=== PATIENT | female | born 1955 | race Hispanic/Latino ===

== ENCOUNTER 2024-11-16 20:49 | Observation (INO) | payer OTHER ==
[~2024-11-16] VITALS: Ht 167.6 cm; Wt 72.2 kg
[2024-11-16 21:23] LABS: IMMATURE GRANULOCYTE ABSOLUTE 0.06 K/uL (0-1); NUCLEATED RED BLOOD CELLS 0.0 % (0.0-0.19); PLATELET COUNT (AUTO) 333 K/uL (130-400); RED BLOOD CELL COUNT(AUTO) 4.46 MIL/uL (4.00-5.50); RED CELL DISTRIBUTION WIDTH 12.0 % (11.0-15.5); WHITE BLOOD COUNT (AUTO) 12.4 K/uL (4.8-10.8)
[2024-11-16 21:32] LABS: CREATININE 1.3 mg/dL (0.5-1.0); GLOMERULAR FILTR. RATE CALC 44.0 mL/min (>90); GLUCOSE,RANDOM 175.0 mg/dL (70-105); SODIUM SERUM 139.0 mmol/L (136-145); UREA NITROGEN, BLOOD 20.0 mg/dL (7-18)
[2024-11-16 21:37] LABS: CREATINE KINASE, TOTAL 23.0 U/L (21-232)
[2024-11-16 21:54] LABS: APPEARANCE,URINE CLOUDY (CLEAR); GLUCOSE, URINE (UA) 50 mg/dL (NEGATIVE); LEUKOCYTE ESTERASE ,URINE 75 Leu/uL (NEGATIVE); NITRATE,URINE NEGATIVE (NEGATIVE); OCCULT BLOOD,URINE NEGATIVE (NEGATIVE)
[2024-11-16 21:58] LABS: ADD UA MICROSCOPIC YES
[2024-11-16 21:59] LABS: HYALINE CASTS, URINE 26-50 /LPF (0-1 /LPF); OTHER CASTS, URINE 42 /LPF (None Seen); SQUAMOUS EPITHELIAL CELL,UR FEW /HPF (0-2); UNCLASSIFIED CRYSTAL 2 /HPF (None Seen)
[2024-11-16] MEDS: 0.9%NACL 1000ML 1,000 ML IV ONE (22:11)
--- NOTE | 2024-11-16 22:19 | HMCIMG ---
EXAM: Non-contrast CT examination of the Brain. CLINICAL HISTORY: Dizzy. History of fall. TECHNIQUE: Thin collimated axial CT images of the brain were obtained, with sagittal and coronal reformatted images also submitted. A CT scan is done according to ALARA (As Low as Reasonably Achievable). CONTRAST USED: None. COMPARISON: None provided. FINDINGS: Mild age-related degenerative change with prominent sulci and basilar cisterns. Subtle hypoattenuation in the deep periventricular white matter and the greenberg radiata sequela of chronic microvascular ischemic disease. No acute intracranial abnormality is present. No acute cortical infarction, hemorrhage, mass, or mass effect. No hydrocephalus or abnormal extra-axial fluid collections. The posterior fossa is unremarkable. The skull base and calvarium are intact. The included portions of the paranasal sinuses and mastoid air cells are clear. IMPRESSION: Age-related degenerative change. Changes of chronic microvascular ischemic disease. No evidence of calvarial fracture or extra-axial collection. No acute intracranial abnormality is present. /[place]
--- NOTE | 2024-11-16 22:27 | ERN ---
ED Note History of Present Illness Stated Complaint: C/O DIZZINESS Chief Complaint: Mechanical Fall Time Seen by MD: 20:55 Time Seen by Midlevel: 20:55 Dictation: The patient is a 69-year-old female with a history of diabetes on Mounjaro, hypertension who presents to the emergency department with complaints of dizziness and weakness. Patient also reports she had a syncope episode today where she fell and hit her frontal head on a block and scraped her right knee. Patient denies any nausea or vomiting but reports nonbloody diarrhea. Patient thinks it is due to her Mounjaro. Denies any abdominal pain denies any fevers, denies any use of blood thinners, denies any LOC Allergies: Coded Allergies: No Known Drug Allergies (Unverified Allergy, Unknown, 11/16/24) Past Medical History Past Medical History: Diabetes-Type II Surgical History: Hysterectomy RN Note Reviewed/Agreed w/PFSH: Yes Review of System Dictation Constitutional: Negative for fever,chills, and weight loss Eyes: Negative for injury, pain,redness, and discharge ENT: Negative for injury,pain or swelling Cardiovascular: Negative for chest pain, palpitations, and edema Respiratory: Negative for shortness of breath, cough, and wheezing, Abdomen/GI: Negative for abdominal pain, nausea, vomiting, and constipation positive for diarrhea Back: Negative for injury and pain : Negative for injury, bleeding and discharge MS/Extremity: Negative for injury and deformity possible for right knee injury Skin: Negative for rash, and discoloration Neuro: Negative for headache, numbness, tingling, and seizure positive for dizziness, weakness Psych: Negative for suicide ideation, homicidal ideation, and hallucinations Initial Vital Sign VS Vital Signs Date Time Temp Pulse Resp B/P (MAP) Pulse Ox O2 Delivery O2 Flow Rate FiO2 11/16/24 20:52 97.5 111 20 137/83 99 Room Air 11/16/24 21:04 0 21 Physical Exam Dictation Vital Signs reviewed General Appearance: Alert, oriented x 3, no acute distress, well developed, nourished. Head and Face: Small hematoma to right frontal area, no active bleeding Eyes: PERRL, pink conjunctivas, eyelid no trauma, anterior chamber with arcus senilis. Ears: Pinnas intact and no signs of trauma or erythema ear canals clear and no discharge TM no erythema Nose: No discharge, no bleeding. Oropharynx: Mouth normal, tongue pink. pharynx clear,no erythema, tonsils no exudates, no abscesses noted, mucous membrane moist Neck: Supple, non-tender, no thyromegaly, no masses, no JVD, no bruits Breast:Deferred Chest:No tenderness, no crepitus, no paradoxical movement, no retractions Lungs:Clear, well-ventilated, symmetric, no rales, no wheezing, no rhonchi, no stridor, good breath sounds bilaterally Heart: Regular rate, regular rhythm, no murmur, no gallops Vascular: no peripheral edema, Abdomen: Soft, positive bowel sounds, nondistended, no guarding, nontender, no rebound, no masses no hepatomegaly, no splenomegaly, no Liang's sign, no hernias. Rectal: Deferred Genital: Deferred Neurological: Normal speech, motor function intact, sensory function intact , upper extremities equal in strength, lower extremities equal in strength Musculoskeletal: Neck nontender, full range of motion, back nontender, full range of motion, Extremities: nontender, full range of motion Skin: Color pink, dry, no turgor, no rash, no lacerations, no contusions. Small abrasion to right knee, no active bleeding Lymphatic: Deferred Results (Laboratory/Radiology) Laboratory/Radiology Laboratory Tests Test 11/16/24 21:17 11/16/24 21:45 White Blood Count 12.4 K/uL (4.8-10.8) H Red Blood Count 4.46 MIL/uL (4.00-5.50) Hemoglobin 13.5 g/dL (12.0-16.0) Hematocrit 39.1 % (36-48) Mean Corpuscular Volume 87.7 fL (79-99) Mean Corpuscular Hemoglobin 30.3 pg (27.0-33.0) Mean Corpuscular Hemoglobin Concent 34.5 g/dL (32.0-36.0) Red Cell Distribution Width 12.0 % (11.0-15.5) Platelet Count 333 K/uL (130-400) Mean Platelet Volume 10.6 fL (7.5-10.5) H Immature Granulocyte % (Auto) 0.5 % (0-1) Neutrophils (%) (Auto) 67.2 % (40.0-77.0) Lymphocytes (%) (Auto) 25.8 % (21.0-51.0) Monocytes (%) (Auto) 5.7 % (3.0-13.0) Eosinophils (%) (Auto) 0.5 % (0.0-8.0) Basophils (%) (Auto) 0.3 % (0.0-5.0) Neutrophils # (Auto) 8.3 K/uL (1.8-7.7) H Lymphocytes # (Auto) 3.2 K/uL (1.0-4.8) Monocytes # (Auto) 0.7 K/uL (0.1-1.0) Eosinophils # (Auto) 0.06 K/uL (0.00-0.70) Basophils # (Auto) 0.04 K/uL (0.00-0.20) Absolute Immature Granulocyte (auto 0.06 K/uL (0-1) Nucleated Red Blood Cells 0.0 % (0.0-0.19) Sodium Level 139 mmol/L (136-145) Potassium Level 4.6 mmol/L (3.5-5.1) Chloride Level 102 mmol/L (101-111) Carbon Dioxide Level 25 mmol/L (21-32) Blood Urea Nitrogen 20 mg/dL (7-18) H Creatinine 1.3 mg/dL (0.5-1.0) H Glomerular Filtration Rate Calc 44 mL/min (>90) Random Glucose 175 mg/dL (70-105) H Total Calcium 10.3 mg/dL (8.5-10.1) H Magnesium Level 1.80 mg/dL (1.80-2.40) Total Creatine Kinase 23 U/L (21-232) Troponin I High Sensitivity 5 ng/L (4-50) Urine Color YELLOW (YELLOW) Urine Appearance CLOUDY (CLEAR) H Urine pH 5.5 (5.0-8.0) Urine Specific [place] 1.027 (1.001-1.031) Urine Protein 100 mg/dL (NEGATIVE) H Urine Glucose (UA) 50 mg/dL (NEGATIVE) H Urine Ketones 5 mg/dL (NEGATIVE) H Urine Occult Blood NEGATIVE (NEGATIVE) Urine Nitrate NEGATIVE (NEGATIVE) Urine Bilirubin NEGATIVE mg/dL (NEGATIVE) Urine Urobilinogen 0.2 mg/dL (0.2-1.0) Urine Leukocyte Esterase 75 [place]/uL (NEGATIVE) H Urine RBC 2-5 /HPF (0-1) H Urine WBC 11-25 /HPF (0-1) H Urine Squamous Epithelial Cells FEW /HPF (0-2) Urine Other Crystals (Auto) 2 /HPF (None Seen) Urine Bacteria FEW /HPF (None Seen) Urine Hyaline Casts 26-50 /LPF (0-1 /LPF) H Urine Other Casts 42 /LPF (None Seen) SHANE: dizzy, fall ORDERING PHYSICIAN: FRANCO CISNEROS [employer] PROCEDURE: HEAD WO - CT HEAD/BRAIN W/O CONTRAST EXAM: Non-contrast CT examination of the Brain. CLINICAL HISTORY: Dizzy. History of fall. TECHNIQUE: Thin collimated axial CT images of the brain were obtained, with sagittal and coronal reformatted images also submitted. A CT scan is done according to ALARA (As Low as Reasonably Achievable). CONTRAST USED: None. COMPARISON: None provided. FINDINGS: Mild age-related degenerative change with prominent sulci and basilar cisterns. Subtle hypoattenuation in the deep periventricular white matter and the greenberg radiata sequela of chronic microvascular ischemic disease. No acute intracranial abnormality is present. No acute cortical infarction, hemorrhage, mass, or mass effect. No hydrocephalus or abnormal extra-axial fluid collections. The posterior fossa is unremarkable. The skull base and calvarium are intact. The included portions of the paranasal sinuses and mastoid air cells are clear. IMPRESSION: Age-related degenerative change. Changes of chronic microvascular ischemic disease. No evidence of calvarial fracture or extra-axial collection. No acute intracranial abnormality is present. /[place] REASON: cp ORDERING PHYSICIAN: FRANCO CISNEROS [facility] PROCEDURE: KNEE 3V RT - KNEE 3VWS RT EXAM: CR Right Knee, 3 views. CLINICAL HISTORY: Pain. COMPARISON: None provided. FINDINGS: No acute fracture or aggressive appearing osseous lesion. 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 Mild spiking of the medial tibial tubercle. Unremarkable lateral femorotibial and patellofemoral compartments. There is no joint effusion appreciated. The soft tissues are unremarkable. IMPRESSION: No acute bony abnormality is evident. 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 /[place] REASON: cp ORDERING PHYSICIAN: FRANCO CISNEROS PROCEDURE: CXR1VW - CHEST 1VW EXAM: CR Chest, 1 view CLINICAL HISTORY: Chest pain. COMPARISON: None provided. FINDINGS: The lungs show no infiltrates or other acute findings. No pleural effusion or pneumothorax. The cardiomediastinal silhouette is within normal limits. No acute osseous abnormality. IMPRESSION: No acute cardiopulmonary process is evident. /[place] Labs Reviewed?: Yes EKG: (+) rhythm (Sinus rhythm) EKG Comment: Date:11/16/2024 Time:2119 Ventricular rate:102 VT interval:129 QRS duration:126 QT/QTc:346 EKG interpretation: Sinus tachycardia, right bundle-branch block Reviewed by ED Attending no STEMI ED Course ED Course Orders Procedure Category Date Status Time Cbc With Differential LAB 11/16/24 Complete 21:10 Chest 1vw RAD 11/16/24 Resulted 21:10 12 Lead Ekg Tracing- EKG 11/16/24 Logged Technical 21:10 0.9%Nacl 1000ml (Ns PHA 11/16/24 Complete 1000ml) 21:30 Acetaminophen 500mg PHA 11/16/24 Complete Tab (Tylenol 500mg T 21:30 Magnesium LAB 11/16/24 Complete 21:10 Creatine Kinase, Total LAB 11/16/24 Complete 21:10 Troponin I High LAB 11/16/24 Complete Sensitivity 21:10 Urinalysis Profile LAB 11/16/24 Complete 21:10 Basic Metabolic Panel LAB 11/16/24 Complete 21:10 Orthostatic Vital CPOE 11/16/24 Transmitted Signs 21:10 Knee 3vws Rt RAD 11/16/24 Resulted 21:10 Ct Head/Brain W/O CT 11/16/24 Resulted Contrast 21:10 Culture Urine CHRISTEL 11/16/24 In Process 21:58 Ceftriaxone 1g Vial PHA 11/16/24 Complete (Rocephine 1g Inj) 23:30 Admit Orders ADM 11/16/24 Transmitted 23:23 Ceftriaxone 2gm Vial PHA 11/17/24 In Process (Rocephin 2gm Inj) 23:35 Vital Signs Every 4 CPOE 11/16/24 Transmitted Hours 23:45 I&O Q Shift CPOE 11/16/24 Transmitted 23:45 Activity: Br W/Brp CPOE 11/16/24 Transmitted With Assist 23:45 Heart Healthy Diet DIET 11/17/24 Transmitted Breakfast O2 Order RT 11/16/24 Transmitted 23:45 Cbc Without LAB 11/17/24 In Process Differential 04:00 Magnesium LAB 11/17/24 In Process 04:00 Phosphorus LAB 11/17/24 In Process 04:00 Thyroid Stimulating LAB 11/17/24 In Process Hormone 04:00 Echo 2-D Complete ECHO 11/16/24 Logged 23:45 Enoxaparin Sodium 40 PHA 11/17/24 In Process Mg/0.4 Ml (Lovenox) 09:00 Acetaminophen 325 Tab PHA 11/17/24 In Process (Tylenol 325mg Tab 00:00 Acetaminophen 650mg PHA 11/17/24 In Process Supp (Tylenol 650mg 00:00 Lactulose 20 Gm/30 Ml PHA 11/17/24 In Process Udcup (Constulose 00:00 Docusate Sodium 100 PHA 11/17/24 In Process Mg Cap (Colace 100mg 00:00 Temazepam 15 Mg Cap PHA 11/17/24 In Process (Restoril 15 Mg Cap) 00:00 Ondansetron 4mg Inj PHA 11/17/24 In Process (Zofran 4mg Inj) 00:00 Labetalol 20mg Syg PHA 11/17/24 In Process (Trandate 20mg Syg) 00:00 Apply Scds CPOE 11/16/24 Transmitted 23:45 Telemetry Monitoring CPOE 11/16/24 Transmitted 23:45 Initiate WILMER 11/16/24 In Process Hyperglycemia Protoco 23:45 Insulin Regular, PHA 11/17/24 In Process Human 3ml (Humulin R 07:30 Hemoglobin A1c LAB 11/17/24 In Process 04:00 B-Type Natriuretic LAB 11/17/24 In Process Peptide 04:00 Troponin I High LAB 11/17/24 In Process Sensitivity 04:00 Comprehensive LAB 11/17/24 In Process Metabolic Panel 04:00 Edm Admit Bridge Order ADM 11/17/24 Transmitted 00:26 Current Medications Medications (Trade) Dose Ordered Sig/Herbert Route PRN Reason Start Time Stop Time Status Last Admin Dose Admin Acetaminophen (TYLenol 500MG TAB) 1,000 mg ONCE ONCE PO 11/16/24 21:30 11/16/24 22:01 DC 11/16/24 22:11 Sodium Chloride 1,000 ml @ 0 mls/hr ONCE ONCE IV 11/16/24 21:30 11/16/24 22:01 DC 11/16/24 22:11 Vital Signs Date Time Temp Pulse Resp B/P (MAP) Pulse Ox O2 Delivery O2 Flow Rate FiO2 11/16/24 21:48 97.5 114 20 121/67 99 Room Air* 0 21 11/16/24 21:47 97.5 96 20 119/62 99 Room Air* 0 21 11/16/24 21:47 97.5 93 20 120/72 99 Room Air* 0 21 11/16/24 21:04 97.5 111 20 137/83 99 Room Air* 0 21 11/16/24 20:52 97.5 111 20 137/83 99 Room Air Medical Decision Making MDM MDM: The patient is a 69-year-old female with a history of diabetes on Mounjaro, hypertension who presents to the emergency department with complaints of dizziness and weakness. Patient also reports she had a syncope episode today where she fell and hit her frontal head on a block and scraped her right knee. Patient denies any nausea or vomiting but reports nonbloody diarrhea. Patient thinks it is due to her Mounjaro. Denies any abdominal pain denies any fevers, denies any use of blood thinners, denies any LOC CBC showed mild leukocytosis, no anemia, chemistry showed creatinine of 1.3, unknown baseline, negative troponin, urinalysis positive for leukocyte esterase. Imaging showed no acute pathology. Patient will be admitted for dehydration and syncopal episode and further evaluation and management. Differential diagnosis: Dehydration, electrolyte imbalance, orthostatic hypotension, intracerebral hemorrhage Comorbidities: Diabetes, hypertension Tests considered and not ordered secondary to shared decision making include: none Previous outside records reviewed: none Risk of complication and/or morbidity or mortality of patient management: The patient meets criteria for admission. Need for emergency major/minor surgery: No There are no social concerns with this patient. I independently interpreted the tests I ordered (labs, urinalysis, etc.). I discussed the case with the hospitalist for admission. [place] accepts admission I discussed the case with the following specialists: none. Historian: pateint. I independently interpreted imaging studies and EKGs that I ordered (US, CT, XR, EKG, etc.). External chart review: none. Medical management and examination interpretation discussions were had by me with other qualified healthcare professionals as indicated for the patient's care. DX & DISP Disposition: Inpatient Decision to Admit Date: Nov 16, 2024 Decision to Admit Time: 23:30 Departure Impression: Primary Impression: Syncope Additional Impressions: Dehydration, Acute kidney injury, UTI (urinary tract infection), Weakness Condition: Stable Referrals: SELF,REFERRAL (PCP) I have reviewed the case, and I agree with, Diagnosis and Plan FRANCO CISNEROS [facility] Nov 16, 2024 22:27
--- NOTE | 2024-11-16 23:02 | HMCIMG ---
EXAM: CR Chest, 1 view CLINICAL HISTORY: Chest pain. COMPARISON: None provided. FINDINGS: The lungs show no infiltrates or other acute findings. No pleural effusion or pneumothorax. The cardiomediastinal silhouette is within normal limits. No acute osseous abnormality. IMPRESSION: No acute cardiopulmonary process is evident. /[place]
--- NOTE | 2024-11-16 23:02 | HMCIMG ---
EXAM: CR Right Knee, 3 views. CLINICAL HISTORY: Pain. COMPARISON: None provided. FINDINGS: No acute fracture or aggressive appearing osseous lesion. 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 Mild spiking of the medial tibial tubercle. Unremarkable lateral femorotibial and patellofemoral compartments. There is no joint effusion appreciated. The soft tissues are unremarkable. IMPRESSION: No acute bony abnormality is evident. 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 /[place]
[2024-11-17] VITALS (9 sets, daily range): BP systolic 116–156; BP diastolic 64–82; PULSE 66–103; RESP 15–20; TEMP 97.6–98; O2SAT 97–99
[2024-11-17] MEDS ORDERED: LACTULOSE 20 GM/30 ML UDCUP PO PRN
--- NOTE | 2024-11-17 00:39 | HP ---
[facility] HISTORY AND PHYSICAL Date of Service: Nov 17, 2024 Time of Service: 00:38 SUPERVISING/ATTENDING PHYSICIANS: Dr. Rutledge and Dr. Steve Soriano HISTORY OF PRESENT ILLNESS: Ms. Soto is a 69-year-old female with a history of diabetes mellitus type on Mounjaro, hypertension, and hx of dizziness who presented [place] [facility] for evaluation of weakness onset two weeks and dizziness onset today. Patient also reported she became dizzy, felt like faint, and fell. She states that she hit her frontal head on a block and scraped her right knee. Patient denied actual syncope episode. The patient stated that she has had nonbloody diarrhea x2 weeks. Patient denied any nausea or vomiting. Patient thinks it is due to her Mounjaro. Denies any LOC, abdominal pain, any fevers, or being on blood thinners. CT of the head without contrast: Age-related degenerative change. Changes of chronic microvascular ischemic disease. No evidence of calvarial fracture or extra-axial collection. No acute intracranial abnormality is present.. Patient presented with a WBCs of 12.4, positive for UTI. In ED the patient received Rocephin 1 g (but not charted), NS 1 L bolus, and Tylenol 1 g. ED provided ordered orthostatic vital signs at 21:10, but were done at 3:00 a.m., Results: Supine 127/67, heart rate 84bpm. Sitting 136/59, heart rate 85bpm, standing 116/65, heart rate 81bpm. Per chart review patient was prescribed meclizine on 07/15/2024. ED provider request patient be admitted with the diagnosis of syncope, dehydration, ENOCH, UTI, and weakness. I assessed the patient at bedside in ED 3. The patient's breathing was even, u nlabored, in no distress. Patient denied any chest pain, shortness of breath, any other pain, problem or concern. REVIEW OF SYSTEMS 12-point ROS reviewed with the patient. All pertinent positives mentioned above, otherwise negative, noncontributory, non-pertinent. PAST MEDICAL HISTORY: As mentioned above PAST SURGICAL HISTORY: Hysterectomy PAST SOCIAL HISTORY: Denied alcohol, tobacco, illicit drug use FAMILY HISTORY: Noncontributory Coded Allergies: No Known Drug Allergies (Unverified Allergy, Unknown, 8/6/25) PHYSICAL EXAM GENERAL APPEARANCE: The patient is awake, alert, and oriented, in no acute cardiopulmonary distress. NEUROLOGICAL: Cranial nerves II-XII grossly intact. Motor is 5/5 in bilateral upper and lower extremities proximal to distal. No sensory deficits. HEENT: Face is symmetric. Pupils are equal and reactive. Extraocular movements are intact. NECK: Supple. No JVD. No thyromegaly. No submental, submandibular, pre- /postauricular, occipital or supraclavicular lymphadenopathy. CHEST: Normal chest expansion. No Telemetry. LUNGS: Absence of any rales, rhonchi or any wheezing. CARDIOVASCULAR: Regular. S1 and S2 normal. No appreciable rubs, murmurs or gallops. ABDOMEN: Soft, nontender, and nondistended. There is no rebound, voluntary guarding, or rigidity. : Deferred. No Gordon. EXTREMITIES: Non-edematous and not cyanotic. No clubbing. Good capillary refill. SKIN: No skin breakdown. Vital Sign (Last 24 Hours) 11/16/24 21:48 Temp 97.5 Pulse 114 Resp 20 B/P (MAP) 121/67 Pulse Ox 99 O2 Delivery Room Air* O2 Flow Rate 0 FiO2 21 LABS: Laboratory: Test 11/16/24 21:45 11/16/24 21:17 Range/Units Urine Color YELLOW YELLOW Urine Appearance CLOUDY H CLEAR Urine pH 5.5 5.0-8.0 Urine Specific [place] 1.027 1.001-1.031 Urine Protein 100 H NEGATIVE mg/dL Urine Glucose (UA) 50 H NEGATIVE mg/dL Urine Ketones 5 H NEGATIVE mg/dL Urine Occult Blood NEGATIVE NEGATIVE Urine Nitrate NEGATIVE NEGATIVE Urine Bilirubin NEGATIVE NEGATIVE mg/dL Urine Urobilinogen 0.2 0.2-1.0 mg/dL Urine Leukocyte Esterase 75 H NEGATIVE [place]/uL Urine RBC 2-5 H 0-1 /HPF Urine WBC 11-25 H 0-1 /HPF Urine Squamous Epithelial Cells FEW 0-2 /HPF Urine Other Crystals (Auto) 2 None Seen /HPF Urine Bacteria FEW None Seen /HPF Urine Hyaline Casts 26-50 H 0-1 /LPF /LPF Urine Other Casts 42 None Seen /LPF White Blood Count 12.4 H 4.8-10.8 K/uL Red Blood Count 4.46 4.00-5.50 MIL/uL Hemoglobin 13.5 12.0-16.0 g/dL Hematocrit 39.1 36-48 % Mean Corpuscular Volume 87.7 79-99 fL Mean Corpuscular Hemoglobin 30.3 27.0-33.0 pg Mean Corpuscular Hemoglobin Concent 34.5 32.0-36.0 g/dL Red Cell Distribution Width 12.0 11.0-15.5 % Platelet Count 333 130-400 K/uL Mean Platelet Volume 10.6 H 7.5-10.5 fL Immature Granulocyte % (Auto) 0.5 0-1 % Neutrophils (%) (Auto) 67.2 40.0-77.0 % Lymphocytes (%) (Auto) 25.8 21.0-51.0 % Monocytes (%) (Auto) 5.7 3.0-13.0 % Eosinophils (%) (Auto) 0.5 0.0-8.0 % Basophils (%) (Auto) 0.3 0.0-5.0 % Neutrophils # (Auto) 8.3 H 1.8-7.7 K/uL Lymphocytes # (Auto) 3.2 1.0-4.8 K/uL Monocytes # (Auto) 0.7 0.1-1.0 K/uL Eosinophils # (Auto) 0.06 0.00-0.70 K/uL Basophils # (Auto) 0.04 0.00-0.20 K/uL Absolute Immature Granulocyte (auto 0.06 0-1 K/uL Nucleated Red Blood Cells 0.0 0.0-0.19 % Sodium Level 139 136-145 mmol/L Potassium Level 4.6 3.5-5.1 mmol/L Chloride Level 102 101-111 mmol/L Carbon Dioxide Level 25 21-32 mmol/L Blood Urea Nitrogen 20 H 7-18 mg/dL Creatinine 1.3 H 0.5-1.0 mg/dL Glomerular Filtration Rate Calc 44 >90 mL/min Random Glucose 175 H 70-105 mg/dL Total Calcium 10.3 H 8.5-10.1 mg/dL Magnesium Level 1.80 1.80-2.40 mg/dL Total Creatine Kinase 23 21-232 U/L Troponin I High Sensitivity 5 4-50 ng/L Current Medications Medications (Trade) Dose Ordered Sig/Herbert Route PRN Reason Start Time Stop Time Status Last Admin Dose Admin Acetaminophen (TYLenol 325MG TAB) 650 mg Q6H PRN PO FEVER/MILD PAIN LEVEL 1-3 11/17/24 00:00 12/17/24 00:00 Acetaminophen (TYLenol 650MG SUPPOSITORY) 650 mg Q6H PRN RC FEVER / MILD PAIN 1-3 IF NPO 11/17/24 00:00 12/17/24 00:00 Ceftriaxone Sodium (Rocephin 2gm Inj) 2 gm Q24H IVPB 11/17/24 23:35 11/27/24 23:34 Docusate Sodium (COLace 100MG CAP) 100 mg BID PRN PO CONSTIPATION 11/17/24 00:00 12/17/24 00:00 Enoxaparin Sodium (Lovenox) 40 mg DAILY SQ 11/17/24 09:00 12/17/24 08:59 Insulin Human Regular (humuLIN R 100 UNIT/ML 3ML) INSULIN SLIDING SCAL... ACHS SQ 11/17/24 07:30 12/17/24 07:29 Labetalol HCl (TRANdate 20MG SYG) 10 mg Q2H PRN IV SBP GREATER THAN 160 11/17/24 00:00 12/17/24 00:00 Lactulose (Constulose 20gm/ 30ml Udcup) 20 gm Q6H PRN PO CONSTIPATION 11/17/24 00:00 12/17/24 00:00 Ondansetron HCl (zoFRAN 4MG INJ) 4 mg Q6H PRN IVP NAUSEA/VOMITING 11/17/24 00:00 12/17/24 00:00 Temazepam (restORIL 15 MG CAP) 15 mg HS PRN PO INSOMNIA/SLEEP 11/17/24 00:00 12/17/24 00:00 DIAGNOSTICS / RADIOLOGY: [ ] ASSESSMENT: Dizziness and near-syncope episode, POA Orthostatic hypotension (sitting 136/59, heart rate 85bpm. Standing 116/65, heart rate 81bpm.) Acute diarrhea x2 weeks, POA Dehydration, POA Acute complicated cystitis, POA Left knee pain s/p fall injury Closed head injury s/p fall on 11/16/2024 Acute kidney injury, GFR 44 General body weakness Leukocytosis, POA Diabetes mellitus with hyperglycemia, on Mounjaro Hypertension History of prior dizziness and placed on meclizine on 07/15/2024 PLAN: -Admit to medical floor with continuous telemetry monitoring and fall precau tions. -Obtain orthostatic vital signs. Repeat orthostatic vital signs in am s/p hydration. -Antiplatelet therapy with Aspirin. -Atorvastatin 40 mg p.o. daily. -Continue home medications lisinopril. Reconcile remaining medications once available. -Meclizine 25 mg PO TID prn dizziness. -Rocephin 2 g IV Q 24 hours. -LR 75 ml/hr IV. -Blood pressure checks every 4 hours and as needed. -Obtain carotid Dopplers and Echo complete in am. -Obtain influenza, COVID, strep screen. -Glucometer checks before meals and at bedtime with regular insulin sliding scale as needed -PRN medications for pain, N/V, constipation, fever, hypertension -AM labs. -Monitor renal and liver function -Monitor electrolytes and treat accordingly PRN -GI and DVT prophylaxis. -Further plan/orders per hospitalization course. ADVANCED CARE PLANNING 1. Which of the following were discussed? Hospice Care - No Therapeutic options - Yes Advance Directives - Yes Other discussions - 2. Discussed with who? The patient 3. Voluntary nature of this service was explained to the patient? Yes 4. Amount of time spent - ___ Over 35 minutes ____ 5. Reviewed by Physician? (if this service was performed by SCOOTER) Yes ATTESTATION BY PHYSICIAN I reviewed the documentation, medical decision making, and treatment plan as noted by the mid-level provider above. I agree with the findings and plan of care. RASHID INMAN BOLT THREADER Nov 17, 2024 00:39
[2024-11-17] MEDS: LACTATED RINGERS 1000ML 1,000 ML IV SCH (03:29)
[2024-11-17 07:14] LABS: ASPARTATE AMINOTRANSFERASE 12.0 U/L (10-37); CREATININE 1.1 mg/dL (0.5-1.0); GLOMERULAR FILTR. RATE CALC 54.0 mL/min (>90); GLUCOSE,RANDOM 103.0 mg/dL (70-105); PHOSPHORUS 4.1 mg/dL (2.5-4.9); SODIUM SERUM 139.0 mmol/L (136-145); TOTAL PROTEIN, SERUM 6.0 g/dL (6.0-8.3); UREA NITROGEN, BLOOD 22.0 mg/dL (7-18)
[2024-11-17 07:18] LABS: NUCLEATED RED BLOOD CELLS 0.0 % (0.0-0.19); PLATELET COUNT (AUTO) 275 K/uL (130-400); RED BLOOD CELL COUNT(AUTO) 3.69 MIL/uL (4.00-5.50); RED CELL DISTRIBUTION WIDTH 12.0 % (11.0-15.5); WHITE BLOOD COUNT (AUTO) 8.6 K/uL (4.8-10.8)
[2024-11-17] MEDS: ENOXAPARIN SODIUM 40 MG/0.4 ML SYRINGE SQ SCH (08:08)
--- NOTE | 2024-11-17 08:30 | EKG ---
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
[2024-11-17] MEDS ORDERED: METF-446 PO (08:38)
[2024-11-17] MEDS ORDERED: LISI20TA24 PO (08:38)
[2024-11-17] MEDS: LISINOPRIL 20 MG TABLET PO SCH (08:43)
[2024-11-17] MEDS: ASPIRIN 81MG CHEW TAB PO SCH (08:53)
--- NOTE | 2024-11-17 09:35 | NUR ---
DCP:HOME Pt currently lives alone in her home. Pt does not have any insecurities with food, residential, and/or utilities. Pt does not have DME, home health, or provider services. Pt is able to complete ADLs independently. PCP is Dr. Joshua Cruz and uses [facility] for any RX needs. At [place] pt will want to go home and family can assist with transportation. Addendum: 11/17/24 at 0937 by ILSA BENITO SS Amended: Links added.
--- NOTE | 2024-11-17 13:05 | HMCSR ---
APPROVED REPORT EXAM: Two-dimensional and M-mode echocardiogram with Doppler and color Doppler. INDICATION ICD: Syncope R55 2D Dimensions RVDd3.3 cmLVEF(%)61.7 (>50%)LVED Vol(simp.)53.0 mL IVSd1.0 (0.7-1.1cm)FS(%)33 %LVES Vol(simp.)19.0 mL LVDd3.7 (3.8-5.6cm)LA (2D)3.3 (1.6-4.0cm)LVEF(%, simp.)65 % PWd1.0 (0.7-1.1cm)Ao Root(2D)2.7 (2.0-3.7cm)LA ESV INDEX (BP)21.21 mL/m2 IVSs1.5 cmLVOT diam1.7 (1.8-2.4cm) LVDs2.5 (2.5-4.0cm)IVC diam1.6 cm PWs1.2 cm Deformation Strain Apical 4-17.6 % Apical 2-19.5 % Apical 3-22.7 % Global Strain-20.0 % M-Mode Dimensions EPSS0.5 cm LA (MM)3.9 (1.6-4.0cm) Ao Root(MM)2.6 (2.0-3.7cm) Aortic Valve AoV Vmax1.6 m/Erik Peak GR10.1 mmHgLVOT Vmax1.0 m/s AoV VTI0.3 mAo Mean GR6.4 mmHgLVOT VTI0.24 m SUSAN (VMAX)1.45 cm2AVA (VTI) 1.6 cm2 Mitral Valve MV E Vmax92.8 cm/sDECEL Nvzi435 ms MV A Ztwk825.5 cm/sP 1/2 T53 ms E/A ratio0.7MVA (PHT)4.2 cm2 TDI E/E' Iyuaoa68.2E/E' Dnouoiu12.8 Medial E' Peak V4.60 cm/sLateral E' Peak V8.63 cm/s Pulmonary Valve PV Vmax1.0 m/sPV VTI0.22 mPV Mean GR2.5 mmHg PV Peak GR3.9 mmHg Left Ventricle The left ventricle is normal size. GLS -20.0% There is normal left ventricular wall thickness. LVEF i s 60-65%. 3D volume EF 64%. Indeterminate diastolic function. Right Ventricle The right ventricle is normal size. The right ventricular systolic function is normal. Atria The left atrium size is normal. The right atrium size is normal. Aortic Valve The aortic valve is normal in structure. No aortic regurgitation is present. There is no aortic valvu lar stenosis. Mitral Valve Mitral valve leaflets open well. There is trace mitral valve regurgitation noted. There is no mitral valve stenosis. Tricuspid Valve The tricuspid valve is normal in structure. There is no tricuspid valve regurgitation noted. Pulmonic Valve The pulmonary valve is normal in structure. There is no pulmonic valvular regurgitation. Great Vessels The aortic root is normal in size. The IVC is normal in size and collapses >50% with inspiration. Pericardium There is no pericardial effusion. Other Information Quality : AdequateRhythm : NSR Conclusion LVEF is 60-65%. 3D volume EF 64%. Indeterminate diastolic function.
--- NOTE | 2024-11-17 13:24 | NUR ---
URINE CULTURE WAS SENT ON 11/16/24, CONFIRMED WITH LAB.
--- NOTE | 2024-11-17 17:09 | PN ---
[facility] PROGRESS NOTE Date of Service: Nov 17, 2024 Time of Service: 16:30 SUBJECTIVE: Ms Soto is a 69-year-old female with a history of diabetes, hypertension who presented to the ED with complaints of dizziness, weakness and fall. The patient was evaluated by me at the bedside in the ED and she is hemodynamically stable and responding well. She reports sudden loss of balance and falling on an object and hit her head and scratched her knee. A small bump on the upper side of right eye is seen. CT head shows no fractures or hemorrhage. She reports no loss of consciousness, sudden increased heart rate, spinning sensation or blackout. She reports orthostatic symptoms sometimes. She then sits down for some time till the dizziness goes. Patient reports acute diarrhea since 2 weeks. Patient denies any nausea or vomiting. Denies abdominal pain, fevers or burning micturition. She informs of having similar episode previously in July. Her labs show WBC count of 12.4 with neutrophils of 8.3, HB A1c 9.6 and creatinine of 1.3 Which improved to 1.1 on hydration. On initial urine presentation urine analysis showed cloudy appearance, urine protein of 100, urine glucose of 50, urine leuko esterase of 75 and urine WBC of 11-25. Her medications include Rocephin 2 g IV BD, aspirin 81 mg p.o., Lovenox 40 mg, LR 1000 mL IV. Her ECG, echo, chest x-ray and knee x-ray are normal. Coronary artery ultrasound report is pending. REVIEW OF SYSTEMS General : No Fever,chills,weakness,night sweats or weight changes Skin : Small swelling bruising on the upper side of right eye, no rashes or itching Head : No headache, head injury or dizziness Eyes : No vision changes, eye pain, redness, discharge, or double vision ENT : No hearing loss, ear pain, nasal congestion, sore throat or hoarseness Neck : No pain, stiffness, or swollen glands Respiratory : No shortness of breath, cough, wheezing, or hemoptysis Gastrointestinal : Diarrhea since 2 weeks, No nausea, vomiting, constipation, abdominal pain, no blood in the stool Genitourinary : No dysuria, frequency, urgency, hematuria, incontinence, or vaginal discharge Musculoskeletal : Pains across multiple joints all over the body at night, swelling, stiffness, or muscle weakness Neurologic : No dizziness, weakness, numbness, tingling, seizures, or loss of consciousness Psychiatric : No anxiety, depression, mood changes, or sleep disturbances Endocrine: No polyuria, polydipsia, no heat or cold intolerance or changes in appetite Hematologic/lymphatic : No easy bruising, bleeding, or swollen lymph nodes Allergic/immunologic : No recurrent infections or autoimmune symptoms. PHYSICAL EXAM GENERAL APPEARANCE: The patient is awake, alert, and oriented, in no acute cardiopulmonary distress. NEUROLOGICAL: Cranial nerves II-XII grossly intact. Motor is 5/5 in bilateral upper and lower extremities proximal to distal. No sensory deficits. HEENT: Face is symmetric. Pupils are equal and reactive. Extraocular movements are intact. NECK: Supple. No JVD. No thyromegaly. No submental, submandibular, pre- /postauricular, occipital or supraclavicular lymphadenopathy. CHEST: Normal chest expansion. No Telemetry. LUNGS: Absence of any rales, rhonchi or any wheezing. CARDIOVASCULAR: Regular. S1 and S2 normal. No appreciable rubs, murmurs or gallops. ABDOMEN: Soft, nontender, and nondistended. There is no rebound, voluntary guarding, or rigidity. : Deferred. No Gordon. EXTREMITIES: Non-edematous and not cyanotic. No clubbing. Good capillary refill. SKIN: Bruising and swelling of 4 cm in the upper side of the right eye. Vital Signs (last 8hr) Date Time Temp Pulse Resp B/P (MAP) Pulse Ox O2 Delivery O2 Flow Rate FiO2 11/17/24 16:00 97.9 85 20 141/64 99 Room Air 11/17/24 15:30 99 Room Air* 0 21 11/17/24 12:00 97.5 93 15 147/71 Room Air LABS: Laboratory: Test 11/17/24 14:25 11/17/24 11:11 11/17/24 09:42 11/17/24 06:30 Range/Units Lactic Acid Level 2.7 H 0.8-2.5 mmol/L Whole Blood Glucose 136 H 70-110 MG/DL Troponin I High Sensitivity 5 4-50 ng/L White Blood Count 8.6 # 4.8-10.8 K/uL Red Blood Count 3.69 L 4.00-5.50 MIL/uL Hemoglobin 11.6 L 12.0-16.0 g/dL Hematocrit 31.9 L 36-48 % Mean Corpuscular Volume 86.4 79-99 fL Mean Corpuscular Hemoglobin 31.4 27.0-33.0 pg Mean Corpuscular Hemoglobin Concent 36.4 H 32.0-36.0 g/dL Red Cell Distribution Width 12.0 11.0-15.5 % Platelet Count 275 130-400 K/uL Mean Platelet Volume 11.0 H 7.5-10.5 fL Nucleated Red Blood Cells 0.0 0.0-0.19 % Red Blood Cell Morphology See comments Sodium Level 139 136-145 mmol/L Potassium Level 3.9 3.5-5.1 mmol/L Chloride Level 105 101-111 mmol/L Carbon Dioxide Level 25 21-32 mmol/L Blood Urea Nitrogen 22 H 7-18 mg/dL Creatinine 1.1 H 0.5-1.0 mg/dL Glomerular Filtration Rate Calc 54 >90 mL/min Random Glucose 103 70-105 mg/dL Hemoglobin A1c 9.6 H 4.0-6.0 % Estimated Average Glucose (eAG) 229 H 70-126 mg/dL Total Calcium 9.2 8.5-10.1 mg/dL Phosphorus Level 4.1 2.5-4.9 mg/dL Magnesium Level 1.70 L 1.80-2.40 mg/dL Total Bilirubin 0.5 0.2-1.0 mg/dL Aspartate Amino Transf (AST/SGOT) 12 10-37 U/L Alanine Aminotransferase (ALT/SGPT) 17 12-78 U/L Alkaline Phosphatase 59 50-136 U/L B-Type Natriuretic Peptide 6 0-100 pg/mL Total Protein 6.0 6.0-8.3 g/dL Albumin 3.3 L 3.5-5.0 g/dL Procalcitonin < 0.05 L 0.05-0.5 ng/mL Thyroid Stimulating Hormone (TSH) 0.75 0.36-3.74 uIU/mL Test 11/16/24 21:45 11/16/24 21:17 Range/Units Urine Color YELLOW YELLOW Urine Appearance CLOUDY H CLEAR Urine pH 5.5 5.0-8.0 Urine Specific [place] 1.027 1.001-1.031 Urine Protein 100 H NEGATIVE mg/dL Urine Glucose (UA) 50 H NEGATIVE mg/dL Urine Ketones 5 H NEGATIVE mg/dL Urine Occult Blood NEGATIVE NEGATIVE Urine Nitrate NEGATIVE NEGATIVE Urine Bilirubin NEGATIVE NEGATIVE mg/dL Urine Urobilinogen 0.2 0.2-1.0 mg/dL Urine Leukocyte Esterase 75 H NEGATIVE [place]/uL Urine RBC 2-5 H 0-1 /HPF Urine WBC 11-25 H 0-1 /HPF Urine Squamous Epithelial Cells FEW 0-2 /HPF Urine Other Crystals (Auto) 2 None Seen /HPF Urine Bacteria FEW None Seen /HPF Urine Hyaline Casts 26-50 H 0-1 /LPF /LPF Urine Other Casts 42 None Seen /LPF Immature Granulocyte % (Auto) 0.5 0-1 % Neutrophils (%) (Auto) 67.2 40.0-77.0 % Lymphocytes (%) (Auto) 25.8 21.0-51.0 % Monocytes (%) (Auto) 5.7 3.0-13.0 % Eosinophils (%) (Auto) 0.5 0.0-8.0 % Basophils (%) (Auto) 0.3 0.0-5.0 % Neutrophils # (Auto) 8.3 H 1.8-7.7 K/uL Lymphocytes # (Auto) 3.2 1.0-4.8 K/uL Monocytes # (Auto) 0.7 0.1-1.0 K/uL Eosinophils # (Auto) 0.06 0.00-0.70 K/uL Basophils # (Auto) 0.04 0.00-0.20 K/uL Absolute Immature Granulocyte (auto 0.06 0-1 K/uL Total Creatine Kinase 23 21-232 U/L Current Medications Medications (Trade) Dose Ordered Sig/Herbert Route PRN Reason Start Time Stop Time Status Last Admin Dose Admin Acetaminophen (TYLenol 325MG TAB) 650 mg Q6H PRN PO FEVER/MILD PAIN LEVEL 1-3 11/17/24 00:00 12/17/24 00:00 Acetaminophen (TYLenol 650MG SUPPOSITORY) 650 mg Q6H PRN RC FEVER / MILD PAIN 1-3 IF NPO 11/17/24 00:00 12/17/24 00:00 Aspirin (Aspirin 81mg Chew Tab) 81 mg DAILY PO 11/17/24 09:00 12/17/24 08:59 11/17/24 08:53 81 MG Atorvastatin Calcium (LIPItor 40MG) 40 mg HS PO 11/17/24 21:00 12/17/24 20:59 Ceftriaxone Sodium (Rocephin 2gm Inj) 2 gm DAILY IVPB 11/17/24 09:00 11/27/24 08:59 11/17/24 09:05 2 GM Ceftriaxone Sodium (Rocephin 2gm Inj) 2 gm Q24H IVPB 11/17/24 23:35 11/17/24 08:52 DC Docusate Sodium (COLace 100MG CAP) 100 mg BID PRN PO CONSTIPATION 11/17/24 00:00 12/17/24 00:00 Enoxaparin Sodium (Lovenox) 40 mg DAILY SQ 11/17/24 09:00 12/17/24 08:59 11/17/24 08:08 40 MG Insulin Human Regular (humuLIN R 100 UNIT/ML 3ML) INSULIN SLIDING SCAL... ACHS SQ 11/17/24 07:30 12/17/24 07:29 Labetalol HCl (TRANdate 20MG SYG) 10 mg Q2H PRN IV SBP GREATER THAN 160 11/17/24 00:00 12/17/24 00:00 Lactated Ringer's 1,000 ml @ 75 mls/hr [id number] IV 11/17/24 03:00 12/17/24 02:59 11/17/24 03:29 75 MLS/HR Lactulose (Constulose 20gm/ 30ml Udcup) 20 gm Q6H PRN PO CONSTIPATION 11/17/24 00:00 12/17/24 00:00 Lisinopril (Prinivil 20mg) 20 mg DAILY PO 11/17/24 09:00 11/17/24 10:18 DC Magnesium Sulfate 50 ml @ 0 mls/hr PROTOCOL PRN IV As needed 11/17/24 08:00 12/17/24 07:59 Meclizine HCl (ANTIvert 25 mg) 25 mg QID PRN PO DIZZINESS 11/17/24 08:30 12/17/24 08:29 Ondansetron HCl (zoFRAN 4MG INJ) 4 mg Q6H PRN IVP NAUSEA/VOMITING 11/17/24 00:00 12/17/24 00:00 Temazepam (restORIL 15 MG CAP) 15 mg HS PRN PO INSOMNIA/SLEEP 11/17/24 00:00 9/6/25 00:00 DIAGNOSTICS / RADIOLOGY: 1. Noncontrast CT of the head(11/16/24) IMPRESSION: Age-related degenerative change. Changes of chronic microvascular ischemic disease. No evidence of calvarial fracture or extra-axial collection. No acute intracranial abnormality is present. 2. Chest x-ray (11/16/24) IMPRESSION: No acute cardiopulmonary process is evident. 3. EKG(11/16/24) Normal sinus rhythm 4. Knee x-ray(11/16/24) IMPRESSION: No acute bony abnormality is evident. 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 5. Echo(11/16/24) Conclusion LVEF is 60-65%. 3D volume EF 64%. Indeterminate diastolic function. 6. Coronary artery ultrasound(11/16/24) Pending ASSESSMENT: Orthostatic hypotension (sitting 136/59, heart rate 85bpm. Standing 116/65, heart rate 81bpm.) Dehydration, POA Acute Diarrhea since 2 weeks Acute complicated cystitis, POA Left knee pain s/p fall injury - rule out fracture with knee x-ray Closed head injury s/p fall on 11/16/2024 - ruled out red flags with CT Acute kidney injury, GFR 44 General body weakness Diabetes mellitus with hyperglycemia, on Mounjaro Hypertension History of prior dizziness and placed on meclizine on 07/15/2024 PLAN: 1. Orthostatic hypotension * sitting 136/59, heart rate 85bpm. Standing 116/65, heart rate 81bpm * Continue fluids and telemetry. * Repeat orthostatic vital signs in am s/p hydration * Continue home medication [id number] mg PO TID PRN dizziness * Educate patient on rising slowly from sitting or lying positions and avoid sudden posture changes * Consider compression stockings or pharmacological treatment if it does not resolve. 2. Urinary tract infection * Urine WBC of 11-25, urine leukocyte esterase of 75 * Order lactic acid levels * Order CBC * Continue Rocephin 2 g 3. Gastroenteritis * Ordered C difficile antibody * Ordered stool culture * Ordered fecal WBC lactoferrin * Maintain good hydration and continue prescribed antibiotics 4. Diabetes mellitus with hyperglycemia * HB A1c is 9.6 as of today * Glucometer checks before meals and at bedtime with regular insulin sliding scale as needed 5.Hypertension * Blood pressure is 124/66 mm Hg. * Continue home hypertension medications * Educate patient on lifestyle modifications * Monitor BMP, urine protein and ECG for end-organ damage 6. Acute kidney injury * Urine protein of 100, urine glucose of 50, GFR 44 * GFR improved to 54 after hydration * Continue IV fluids. DVT prophylaxis and GI prophylaxis after hospitalization ATTESTATION BY PHYSICIAN I have seen and examined the patient. I reviewed the documentation, medical decision making, and treatment plan as noted by the resident provider above. I agree with the findings and plan of care. Az Rutledge MD, BHAVANI MD Nov 17, 2024 17:09
[2024-11-17 21:56] LABS: SARS-CoV-2, RNA, NAAT NEGATIVE SARS CoV-2 (NEGATIVE)
[2024-11-17 22:00] LABS: RAPID GROUP A STREP positive (NEGATIVE)
[2024-11-17 22:01] LABS: INFLUENZA TYPE A Negative For Type A (NEGATIVE); INFLUENZA TYPE B Negative For Type B (NEGATIVE)
[2024-11-18] VITALS (9 sets, daily range): BP systolic 100–152; BP diastolic 69–85; PULSE 83–101; RESP 18–20; TEMP 97.7–98.2; O2SAT 96–97
--- NOTE | 2024-11-18 | NUR ---
ADMISSION NOTE PATIENT TRANSFERRED, RECEIVED REPORT FROM BHARGAV VAN. MEDICATION RECONCILIATION DONE. PATIENT ALERT, ORIENTED, ABLE TO MAKE NEEDS KNOWN. TARENEA NONOG NOTIFIED OF STREP A POSITIVE STATUS. DROPLET PRECAUTIONS ENACTED. CALL LIGHT IN REACH OF PATIENT, BED ALARM IN PLACE.
[2024-11-18 05:51] LABS: NUCLEATED RED BLOOD CELLS 0.0 % (0.0-0.19); PLATELET COUNT (AUTO) 263.0 K/uL (130-400); RED BLOOD CELL COUNT(AUTO) 3.88 MIL/uL (4.00-5.50); RED CELL DISTRIBUTION WIDTH 11.9 % (11.0-15.5); WHITE BLOOD COUNT (AUTO) 7.1 K/uL (4.8-10.8)
[2024-11-18 06:04] LABS: CREATININE 0.8 mg/dL (0.5-1.0); GLOMERULAR FILTR. RATE CALC 79.0 mL/min (>90); GLUCOSE,RANDOM 127.0 mg/dL (70-105); SODIUM SERUM 140.0 mmol/L (136-145); UREA NITROGEN, BLOOD 19.0 mg/dL (7-18)
[2024-11-18] MEDS: MAGNESIUM 2GM PREMIX 50ML 50 ML IV PRN (06:11)
--- NOTE | 2024-11-18 08:22 | HMCIMG ---
EXAMINATION: DUPLEX ULTRASOUND EXAMINATION OF THE BILATERAL CAROTID AND VERTEBRAL ARTERIES. CLINICAL HISTORY: Syncope. COMPARISON: CT head without contrast dated 11/16/2024. TECHNIQUE: Real-time ultrasound scan of the bilateral carotid and vertebral arteries, 2-D grayscale, with color Doppler flow and spectral waveform analysis. FINDINGS: Color and spectral Doppler interrogation of the carotid vessels on the right demonstrate peak systolic velocities as follows: CCA (Proximal and distal): 77 and 74 cm/s respectively. Bulb: 69 cm/s. ECA: 95 cm/s. ICA (Proximal, mid, and distal): 72, 108, and 120 cm/s respectively. Vertebral artery demonstrates antegrade flow: 54 cm/s. Right ICA/CCA ratio: 1.6 Peak systolic velocities on the left are as follows: CCA (Proximal and distal): 130 and 110 cm/s respectively. Bulb: 92 cm/s. ECA: 106 cm/s. ICA (Proximal, mid, and distal): 134, 118, and 139 cm/s respectively. Vertebral artery demonstrates antegrade flow: 70 cm/s. Left ICA/CCA ratio: 1.3 Both the common carotid arteries and their branches reveal mild intimal thickening. There are small calcified plaques in the bilateral carotid bulb without significant stenosis. IMPRESSION: Mild intimal thickening in the bilateral carotid arteries and their branches. Small calcified plaques in the bilateral carotid bulb without significant stenosis. There is no significant flow limiting lesions in the remainder of the arteries. /Tobias
[2024-11-18 10:39] LABS: LDL DIRECT 110 mg/dL (0-99)
[2024-11-18] MEDS ORDERED: NACL IV ONE (12:00)
[2024-11-18] MEDS: 0.9% NACL 500ML IV.SOLN 500 ML IV ONE (12:08)
--- NOTE | 2024-11-18 13:50 | NUR ---
SPEECH TRIGGER COMPLETED / FALL, DIZZY Pt IS A 69 Y.O. FEMALE ADMITTED SECONDARY TO DIZZY, FALL, UTI, DIARRHEA, AND ENOCH. Pt HAS A PAST MEDICAL HISTORY SIGNIFICANT FOR DM, HTN, AND Hx OF DIZZINESS. PATIENT PRESENTED WITH NO PULMONARY INFILTRATES ON MOST RECENT CHEST X-RAY (11/16/2024). Pt CURRENTLY ON HEART HEALTHY DIET (REGULAR TEXTURE AND THIN LIQUIDS). PER NURSE MAGGY, Pt TOLERATING DIET WITH NO OVERT S/S OF ASPIRATION. PLEASE REQUEST SPEECH THERAPY SERVICES FOR SKILLED BEDSIDE SWALLOW EVALUATION IF Pt PRESENTS WITH +S/S OF ASPIRATION SUCH COUGH RESPONSE, THROAT CLEAR, OR WET VOCAL QUALITY DURING ORAL INTAKE. ALL QUESTIONS ANSWERED AT THIS TIME. Addendum: 11/18/[address] YAZMIN MELLO Amended: Links added.
[2024-11-18] MEDS: 0.9% NACL 500ML IV.SOLN 500 ML IV STA (14:47)
--- NOTE | 2024-11-18 17:30 | PN ---
[facility] PROGRESS NOTE Date of Service: Nov 18, 2024 Time of Service: 17:29 SUBJECTIVE: Ms Soto is a 69-year-old female with a history of diabetes, hypertension who presented to the ED with complaints of dizziness, weakness and fall. The patient was evaluated by me at the bedside in the ED and she is hemodynamically stable and responding well. She reports sudden loss of balance and falling on an object and hit her head and scratched her knee. A small bump on the upper side of right eye is seen. CT head shows no fractures or hemorrhage. She reports no loss of consciousness, sudden increased heart rate, spinning sensation or blackout. She reports orthostatic symptoms sometimes. She then sits down for some time till the dizziness goes. Patient reports acute diarrhea since 2 weeks. Patient denies any nausea or vomiting. Denies abdominal pain, fevers or burning micturition. She informs of having similar episode previously in July. Her labs show WBC count of 12.4 with neutrophils of 8.3, HB A1c 9.6 and creatinine of 1.3 Which improved to 1.1 on hydration. On initial urine presentation urine analysis showed cloudy appearance, urine protein of 100, urine glucose of 50, urine leuko esterase of 75 and urine WBC of 11-25. Her medications include Rocephin 2 g IV BD, aspirin 81 mg p.o., Lovenox 40 mg, LR 1000 mL IV. Her ECG, echo, chest x-ray and knee x-ray are normal. Coronary artery ultrasound report is pending. 11/18/24 The patient was examined at bedside. She is hemodynamically stable. Her orthostatic test yesterday night showed positive. Lactic acid is 2.7. She is given 500 mL NaCl IV bolus and checked for orthostatic hypertension this afternoon. It tested positive. So I plan to hydrate the patient overnight and check for orthostatic hypertension tomorrow morning. The patient's lipid panel showed elevated triglycerides of 297, LDL cholesterol of 110 and she should continue atorvastatin 40mg. Patient tested positive for rapid group a strep positive. We plan to start the patient on Augmentin on discharge. REVIEW OF SYSTEMS General : No Fever,chills,weakness,night sweats or weight changes Skin : Small swelling bruising on the upper side of right eye, no rashes or itching Head : No headache, head injury or dizziness Eyes : No vision changes, eye pain, redness, discharge, or double vision ENT : No hearing loss, ear pain, nasal congestion, sore throat or hoarseness Neck : No pain, stiffness, or swollen glands Respiratory : No shortness of breath, cough, wheezing, or hemoptysis Gastrointestinal : Diarrhea resolved, No nausea, vomiting, constipation, abdominal pain, no blood in the stool Genitourinary : No dysuria, frequency, urgency, hematuria, incontinence, or vaginal discharge Musculoskeletal : Pains across multiple joints all over the body at night, swelling, stiffness, or muscle weakness Neurologic : No dizziness, weakness, numbness, tingling, seizures, or loss of c onsciousness Psychiatric : No anxiety, depression, mood changes, or sleep disturbances Endocrine: No polyuria, polydipsia, no heat or cold intolerance or changes in appetite Hematologic/lymphatic : No easy bruising, bleeding, or swollen lymph nodes Allergic/immunologic : No recurrent infections or autoimmune symptoms. PHYSICAL EXAM GENERAL APPEARANCE: The patient is awake, alert, and oriented, in no acute cardiopulmonary distress. NEUROLOGICAL: Cranial nerves II-XII grossly intact. Motor is 5/5 in bilateral upper and lower extremities proximal to distal. No sensory deficits. HEENT: Face is symmetric. Pupils are equal and reactive. Extraocular movements are intact. NECK: Supple. No JVD. No thyromegaly. No submental, submandibular, pre- /postauricular, occipital or supraclavicular lymphadenopathy. CHEST: Normal chest expansion. No Telemetry. LUNGS: Absence of any rales, rhonchi or any wheezing. CARDIOVASCULAR: Regular. S1 and S2 normal. No appreciable rubs, murmurs or gallops. ABDOMEN: Soft, nontender, and nondistended. There is no rebound, voluntary guarding, or rigidity. : Deferred. No Gordon. EXTREMITIES: Non-edematous and not cyanotic. No clubbing. Good capillary refill. SKIN: Bruising in the upper side of the right eye. Vital Signs (last 8hr) Date Time Temp Pulse Resp B/P (MAP) Pulse Ox O2 Delivery O2 Flow Rate FiO2 11/18/24 16:00 98.1 86 18 138/72 98 Room Air 11/18/24 12:03 98.1 83 18 129/74 99 Room Air 11/18/24 12:00 101 100/69 98 11/18/24 12:00 87 129/76 99 LABS: Laboratory: Test 11/18/24 17:16 11/18/24 15:46 11/18/24 05:40 11/17/24 21:34 Range/Units Lactic Acid Level 1.4 0.8-2.5 mmol/L Whole Blood Glucose 149 H 70-110 MG/DL White Blood Count 7.1 4.8-10.8 K/uL Red Blood Count 3.88 L 4.00-5.50 MIL/uL Hemoglobin 11.9 L 12.0-16.0 g/dL Hematocrit 34.0 L 36-48 % Mean Corpuscular Volume 87.6 79-99 fL Mean Corpuscular Hemoglobin 30.7 27.0-33.0 pg Mean Corpuscular Hemoglobin Concent 35.0 32.0-36.0 g/dL Red Cell Distribution Width 11.9 11.0-15.5 % Platelet Count 263 130-400 K/uL Mean Platelet Volume 10.5 7.5-10.5 fL Nucleated Red Blood Cells 0.0 0.0-0.19 % Sodium Level 140 136-145 mmol/L Potassium Level 4.1 3.5-5.1 mmol/L Chloride Level 105 101-111 mmol/L Carbon Dioxide Level 27 21-32 mmol/L Blood Urea Nitrogen 19 H 7-18 mg/dL Creatinine 0.8 0.5-1.0 mg/dL Glomerular Filtration Rate Calc 79 >90 mL/min Random Glucose 127 H 70-105 mg/dL Total Calcium 9.2 8.5-10.1 mg/dL Magnesium Level 1.60 L 1.80-2.40 mg/dL Triglycerides Level 297 H 30-200 mg/dL Cholesterol Level 192 <200 mg/dL LDL Cholesterol 110 H 0-99 mg/dL HDL Cholesterol 42 35-85 mg/dL Influenza Type A Antigen Negative For Type A NEGATIVE Influenza Type B Antigen Negative For Type B NEGATIVE SARS-CoV-2, RNA, NAAT NEGATIVE SARS CoV-2 NEGATIVE Group A Streptococcus Rapid positive *A NEGATIVE Test 11/17/24 09:42 11/17/24 06:30 11/16/24 21:45 11/16/24 21:17 Range/Units Troponin I High Sensitivity 5 4-50 ng/L Red Blood Cell Morphology See comments Hemoglobin A1c 9.6 H 4.0-6.0 % Estimated Average Glucose (eAG) 229 H 70-126 mg/dL Phosphorus Level 4.1 2.5-4.9 mg/dL Total Bilirubin 0.5 0.2-1.0 mg/dL Aspartate Amino Transf (AST/SGOT) 12 10-37 U/L Alanine Aminotransferase (ALT/SGPT) 17 12-78 U/L Alkaline Phosphatase 59 50-136 U/L B-Type Natriuretic Peptide 6 0-100 pg/mL Total Protein 6.0 6.0-8.3 g/dL Albumin 3.3 L 3.5-5.0 g/dL Procalcitonin < 0.05 L 0.05-0.5 ng/mL Thyroid Stimulating Hormone (TSH) 0.75 0.36-3.74 uIU/mL Urine Color YELLOW YELLOW Urine Appearance CLOUDY H CLEAR Urine pH 5.5 5.0-8.0 Urine Specific [place] 1.027 1.001-1.031 Urine Protein 100 H NEGATIVE mg/dL Urine Glucose (UA) 50 H NEGATIVE mg/dL Urine Ketones 5 H NEGATIVE mg/dL Urine Occult Blood NEGATIVE NEGATIVE Urine Nitrate NEGATIVE NEGATIVE Urine Bilirubin NEGATIVE NEGATIVE mg/dL Urine Urobilinogen 0.2 0.2-1.0 mg/dL Urine Leukocyte Esterase 75 H NEGATIVE [place]/uL Urine RBC 2-5 H 0-1 /HPF Urine WBC 11-25 H 0-1 /HPF Urine Squamous Epithelial Cells FEW 0-2 /HPF Urine Other Crystals (Auto) 2 None Seen /HPF Urine Bacteria FEW None Seen /HPF Urine Hyaline Casts 26-50 H 0-1 /LPF /LPF Urine Other Casts 42 None Seen /LPF Immature Granulocyte % (Auto) 0.5 0-1 % Neutrophils (%) (Auto) 67.2 40.0-77.0 % Lymphocytes (%) (Auto) 25.8 21.0-51.0 % Monocytes (%) (Auto) 5.7 3.0-13.0 % Eosinophils (%) (Auto) 0.5 0.0-8.0 % Basophils (%) (Auto) 0.3 0.0-5.0 % Neutrophils # (Auto) 8.3 H 1.8-7.7 K/uL Lymphocytes # (Auto) 3.2 1.0-4.8 K/uL Monocytes # (Auto) 0.7 0.1-1.0 K/uL Eosinophils # (Auto) 0.06 0.00-0.70 K/uL Basophils # (Auto) 0.04 0.00-0.20 K/uL Absolute Immature Granulocyte (auto 0.06 0-1 K/uL Total Creatine Kinase 23 21-232 U/L Current Medications Medications (Trade) Dose Ordered Sig/Herbert Route PRN Reason Start Time Stop Time Status Last Admin Dose Admin Acetaminophen (TYLenol 325MG TAB) 650 mg Q6H PRN PO FEVER/MILD PAIN LEVEL 1-3 11/17/24 00:00 12/17/24 00:00 11/18/24 17:12 650 MG Acetaminophen (TYLenol 650MG SUPPOSITORY) 650 mg Q6H PRN RC FEVER / MILD PAIN 1-3 IF NPO 11/17/24 00:00 12/17/24 00:00 Aspirin (Aspirin 81mg Chew Tab) 81 mg DAILY PO 11/17/24 09:00 12/17/24 08:59 11/18/24 08:36 81 MG Atorvastatin Calcium (LIPItor 40MG) 40 mg HS PO 11/17/24 21:00 12/17/24 20:59 11/17/24 20:28 40 MG Ceftriaxone Sodium (Rocephin 2gm Inj) 2 gm DAILY IVPB 11/17/24 09:00 11/27/24 08:59 11/18/24 08:36 2 GM Ceftriaxone Sodium (Rocephin 2gm Inj) 2 gm Q24H IVPB 11/17/24 23:35 11/17/24 08:52 DC Docusate Sodium (COLace 100MG CAP) 100 mg BID PRN PO CONSTIPATION 11/17/24 00:00 12/17/24 00:00 Enoxaparin Sodium (Lovenox) 40 mg DAILY SQ 11/17/24 09:00 12/17/24 08:59 11/18/24 08:37 40 MG Insulin Human Regular (humuLIN R 100 UNIT/ML 3ML) INSULIN SLIDING SCAL... ACHS SQ 11/17/24 07:30 12/17/24 07:29 Labetalol HCl (TRANdate 20MG SYG) 10 mg Q2H PRN IV SBP GREATER THAN 160 11/17/24 00:00 12/17/24 00:00 Lactated Ringer's 1,000 ml @ 75 mls/hr [id number] IV 11/17/24 03:00 12/17/24 02:59 11/18/24 05:35 75 MLS/HR Lactulose (Constulose 20gm/ 30ml Udcup) 20 gm Q6H PRN PO CONSTIPATION 11/17/24 00:00 12/17/24 00:00 Lisinopril (Prinivil 20mg) 20 mg DAILY PO 11/17/24 09:00 11/17/24 10:18 DC Magnesium Sulfate 50 ml @ 0 mls/hr PROTOCOL PRN IV As needed 11/17/24 08:00 12/17/24 07:59 11/18/24 06:11 25 MLS/HR Meclizine HCl (ANTIvert 25 mg) 25 mg QID PRN PO DIZZINESS 11/17/24 08:30 12/17/24 08:29 Ondansetron HCl (zoFRAN 4MG INJ) 4 mg Q6H PRN IVP NAUSEA/VOMITING 11/17/24 00:00 12/17/24 00:00 Sodium Chloride 500 ml @ 0 mls/hr Q0M STAT IV 11/18/24 14:13 11/18/24 14:18 DC 11/18/24 14:47 300 MLS/HR Temazepam (restORIL 15 MG CAP) 15 mg HS PRN PO INSOMNIA/SLEEP 11/17/24 00:00 12/17/24 00:00 DIAGNOSTICS / RADIOLOGY: 1. Noncontrast CT of the head(11/16/24) IMPRESSION: Age-related degenerative change. Changes of chronic microvascular ischemic disease. No evidence of calvarial fracture or extra-axial collection. No acute intracranial abnormality is present. 2. Chest x-ray (11/16/24) IMPRESSION: No acute cardiopulmonary process is evident. 3. EKG(11/16/24) Normal sinus rhythm 4. Knee x-ray(11/16/24) IMPRESSION: No acute bony abnormality is evident. 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 5. Echo(11/16/24) Conclusion LVEF is 60-65%. 3D volume EF 64%. Indeterminate diastolic function. 6. Coronary artery ultrasound(11/16/24) IMPRESSION: Mild intimal thickening in the bilateral carotid arteries and their branches. Small calcified plaques in the bilateral carotid bulb without significant stenosis. There is no significant flow limiting lesions in the remainder of the arteries. ASSESSMENT: Orthostatic hypotension (sitting 136/59, heart rate 85bpm. Standing 116/65, heart rate 81bpm.) Dehydration, POA Acute Diarrhea since 2 weeks resolved Acute complicated cystitis, POA Left knee pain s/p fall injury - ruled out fracture with knee x-ray Closed head injury s/p fall on 11/16/2024 - ruled out red flags with CT Acute kidney injury, GFR 44 General body weakness Diabetes mellitus with hyperglycemia, on Mounjaro Hypertension History of prior dizziness and placed on meclizine on 07/15/2024 PLAN: 1. Orthostatic hypotension * sitting 141/72 Standing 122/79 * Continue fluids and telemetry. * Repeat orthostatic vital signs in am s/p hydration * Continue home medication [id number] mg PO TID PRN dizziness * Educate patient on rising slowly from sitting or lying positions and avoid sudden posture changes * Consider compression stockings or pharmacological treatment if it does not resolve. 2. Sepsis with Urinary tract infection * Initial presentation HR 111,WBC 12.4 with positive urine leukocyte esterase * Monitor lactic acid levels * Order CBC * Continue Rocephin 2 g 3. Gastroenteritis - resolved * pending C difficile antibody * pending stool culture * pending fecal WBC lactoferrin * Maintain good hydration and continue prescribed antibiotics 4. Diabetes mellitus with hyperglycemia * Glucometer checks before meals and at bedtime with regular insulin sliding scale as needed 5.Hypertension * Blood pressure is 138/72 mm Hg. * Continue home hypertension medications * Educate patient on lifestyle modifications * Monitor BMP, urine protein and ECG for end-organ damage 6. Acute kidney injury * Urine protein of 100, urine glucose of 50, GFR 44 on initial urine analysis() * GFR improved to 54 after hydration * Continue IV fluids. DVT prophylaxis and GI prophylaxis PRN ATTESTATION BY PHYSICIAN I have seen and examined the patient. I reviewed the documentation, medical decision making, and treatment plan as noted by the resident provider above. I agree with the findings and plan of care. Az Rutledge MD, BHAVANI MD Nov 18, 2024 17:30
[2024-11-18] MEDS: FAMOTIDINE 20MG TAB PO ONE (18:22)
[2024-11-18] MEDS ORDERED: ENOXAPARIN SODIUM 30 MG/0.3 ML SQ SCH (21:00)
--- NOTE | 2024-11-18 21:00 | NUR ---
MEDS SHIFT ASSESSMENT DONE, PLEASE REFER TO CHART. DUE MEDS ADMINISTERED, TOLERATE DWELL. KEPT RESTED AND COMFORTABLE IN BED. CALL LIGHT WITHIN REACH. FAMILY AT BEDSIDE.
[2024-11-19] VITALS (10 sets, daily range): BP systolic 113–158; BP diastolic 68–82; PULSE 80–95; RESP 18–20; TEMP 97.9–98.3; O2SAT 98–99
[2024-11-19 05:32] LABS: NUCLEATED RED BLOOD CELLS 0.0 % (0.0-0.19); PLATELET COUNT (AUTO) 247.0 K/uL (130-400); RED BLOOD CELL COUNT(AUTO) 3.74 MIL/uL (4.00-5.50); RED CELL DISTRIBUTION WIDTH 11.8 % (11.0-15.5); WHITE BLOOD COUNT (AUTO) 6.7 K/uL (4.8-10.8)
[2024-11-19 05:47] LABS: CREATININE 0.7 mg/dL (0.5-1.0); GLOMERULAR FILTR. RATE CALC 92.0 mL/min (>90); GLUCOSE,RANDOM 116.0 mg/dL (70-105); SODIUM SERUM 141.0 mmol/L (136-145); UREA NITROGEN, BLOOD 17.0 mg/dL (7-18)
--- NOTE | 2024-11-19 06:14 | NUR ---
MEDS PT CLAIMS THAT BACK PAINS HAD BEEN RELIEVED BY TYLENOL. MG REPLACEMENT IV STARTED PER PROTOCOL. KEPT RESTED AND COMFORTABLE IN BED. CALL LIGHT WITHIN REACH. FOR MORE CARE.
--- NOTE | 2024-11-19 14:38 | PN ---
[facility] PROGRESS NOTE Date of Service: Nov 19, 2024 Time of Service: 14:23 SUBJECTIVE: Ms Soto is a 69-year-old female with a history of diabetes, hypertension who presented to the ED with complaints of dizziness, weakness and fall. The patient was evaluated by me at the bedside in the ED and she is hemodynamically stable and responding well. She reports sudden loss of balance and falling on an object and hit her head and scratched her knee. A small bump on the upper side of right eye is seen. CT head shows no fractures or hemorrhage. She reports no loss of consciousness, sudden increased heart rate, spinning sensation or blackout. She reports orthostatic symptoms sometimes. She then sits down for some time till the dizziness goes. Patient reports acute diarrhea since 2 weeks. Patient denies any nausea or vomiting. Denies abdominal pain, fevers or burning micturition. She informs of having similar episode previously in July. Her labs show WBC count of 12.4 with neutrophils of 8.3, HB A1c 9.6 and creatinine of 1.3 Which improved to 1.1 on hydration. On initial urine presentation urine analysis showed cloudy appearance, urine protein of 100, urine glucose of 50, urine leuko esterase of 75 and urine WBC of 11-25. Her medications include Rocephin 2 g IV BD, aspirin 81 mg p.o., Lovenox 40 mg, LR 1000 mL IV. Her ECG, echo, chest x-ray and knee x-ray are normal. Coronary artery ultrasound report is pending. 11/18/24 The patient was examined at bedside. She is hemodynamically stable. Her orthostatic test yesterday night showed positive. Lactic acid is 2.7. She is given 500 mL NaCl IV bolus and checked for orthostatic hypertension this afternoon. It tested positive. So I plan to hydrate the patient overnight and check for orthostatic hypertension tomorrow morning. The patient's lipid panel showed elevated triglycerides of 297, LDL cholesterol of 110 and she should continue atorvastatin 40mg. Patient tested positive for rapid group a strep positive. We plan to start the patient on Augmentin on discharge. 11/19/24 The patient is awake, alert and oriented. Her blood pressure lying down is 143/76. The systolic blood pressure showed a drop of > 20 when standing. According tot he patient she didn't feel dizzy while standing up. Physical therapy is consulted for orthostatic hypotension evaluation. She is receiving Ringers lactate at 75mls/hr. Patient tested positive for rapid group a strep positive. We plan to start the patient on Augmentin on discharge. REVIEW OF SYSTEMS General : No Fever,chills,weakness,night sweats or weight changes Skin : Small swelling bruising on the upper side of right eye, no rashes or itching Head : No headache, head injury or dizziness Eyes : No vision changes, eye pain, redness, discharge, or double vision ENT : No hearing loss, ear pain, nasal congestion, sore throat or hoarseness Neck : No pain, stiffness, or swollen glands Respiratory : No shortness of breath, cough, wheezing, or hemoptysis Gastrointestinal : Diarrhea resolved, No nausea, vomiting, constipation, abdominal pain, no blood in the stool Genitourinary : No dysuria, frequency, urgency, hematuria, incontinence, or vaginal discharge Musculoskeletal : Pains across multiple joints all over the body at night, swelling, stiffness, or muscle weakness Neurologic : No dizziness, weakness, numbness, tingling, seizures, or loss of consciousness Psychiatric : No anxiety, depression, mood changes, or sleep disturbances Endocrine: No polyuria, polydipsia, no heat or cold intolerance or changes in appetite Hematologic/lymphatic : No easy bruising, bleeding, or swollen lymph nodes Allergic/immunologic : No recurrent infections or autoimmune symptoms. PHYSICAL EXAM GENERAL APPEARANCE: The patient is awake, alert, and oriented, in no acute cardiopulmonary distress. NEUROLOGICAL: Cranial nerves II-XII grossly intact. Motor is 5/5 in bilateral upper and lower extremities proximal to distal. No sensory deficits. HEENT: Face is symmetric. Pupils are equal and reactive. Extraocular movements are intact. NECK: Supple. No JVD. No thyromegaly. No submental, submandibular, pre- /postauricular, occipital or supraclavicular lymphadenopathy. CHEST: Normal chest expansion. No Telemetry. LUNGS: Absence of any rales, rhonchi or any wheezing. CARDIOVASCULAR: Regular. S1 and S2 normal. No appreciable rubs, murmurs or gallops. ABDOMEN: Soft, nontender, and nondistended. There is no rebound, voluntary guarding, or rigidity. : Deferred. No Gordon. EXTREMITIES: Non-edematous and not cyanotic. No clubbing. Good capillary refill. SKIN: Bruising in the upper side of the right eye. Vital Signs (last 8hr) Date Time Temp Pulse Resp B/P (MAP) Pulse Ox O2 Delivery O2 Flow Rate FiO2 11/19/24 12:00 98.2 80 18 141/76 96 Room Air 11/19/24 08:00 97.9 81 18 143/76 96 Room Air LABS: Laboratory: Test 11/19/24 10:57 11/19/24 05:13 11/18/24 20:02 11/18/24 17:16 Range/Units Whole Blood Glucose 142 H 70-110 MG/DL White Blood Count 6.7 4.8-10.8 K/uL Red Blood Count 3.74 L 4.00-5.50 MIL/uL Hemoglobin 11.3 L 12.0-16.0 g/dL Hematocrit 32.1 L 36-48 % Mean Corpuscular Volume 85.8 79-99 fL Mean Corpuscular Hemoglobin 30.2 27.0-33.0 pg Mean Corpuscular Hemoglobin Concent 35.2 32.0-36.0 g/dL Red Cell Distribution Width 11.8 11.0-15.5 % Platelet Count 247 130-400 K/uL Mean Platelet Volume 10.7 H 7.5-10.5 fL Nucleated Red Blood Cells 0.0 0.0-0.19 % Sodium Level 141 136-145 mmol/L Potassium Level 4.1 3.5-5.1 mmol/L Chloride Level 108 101-111 mmol/L Carbon Dioxide Level 26 21-32 mmol/L Blood Urea Nitrogen 17 7-18 mg/dL Creatinine 0.7 0.5-1.0 mg/dL Glomerular Filtration Rate Calc 92 >90 mL/min Random Glucose 116 H 70-105 mg/dL Total Calcium 8.9 8.5-10.1 mg/dL Magnesium Level 1.70 L 1.80-2.40 mg/dL Bedside Glucose Comment Notified Nurse Lactic Acid Level 1.4 0.8-2.5 mmol/L Test 11/18/24 05:40 11/17/24 21:34 Range/Units Triglycerides Level 297 H 30-200 mg/dL Cholesterol Level 192 <200 mg/dL LDL Cholesterol 110 H 0-99 mg/dL HDL Cholesterol 42 35-85 mg/dL Influenza Type A Antigen Negative For Type A NEGATIVE Influenza Type B Antigen Negative For Type B NEGATIVE SARS-CoV-2, RNA, NAAT NEGATIVE SARS CoV-2 NEGATIVE Group A Streptococcus Rapid positive *A NEGATIVE Current Medications Medications (Trade) Dose Ordered Sig/Herbert Route PRN Reason Start Time Stop Time Status Last Admin Dose Admin Acetaminophen (TYLenol 325MG TAB) 650 mg Q6H PRN PO FEVER/MILD PAIN LEVEL 1-3 11/17/24 00:00 12/17/24 00:00 11/19/24 05:24 650 MG Acetaminophen (TYLenol 650MG SUPPOSITORY) 650 mg Q6H PRN RC FEVER / MILD PAIN 1-3 IF NPO 11/17/24 00:00 12/17/24 00:00 Aspirin (Aspirin 81mg Chew Tab) 81 mg DAILY PO 11/17/24 09:00 12/17/24 08:59 11/19/24 08:10 81 MG Atorvastatin Calcium (LIPItor 40MG) 40 mg HS PO 11/17/24 21:00 12/17/24 20:59 11/18/24 21:01 40 MG Ceftriaxone Sodium (Rocephin 2gm Inj) 2 gm DAILY IVPB 11/17/24 09:00 11/27/24 08:59 11/19/24 08:11 2 GM Ceftriaxone Sodium (Rocephin 2gm Inj) 2 gm Q24H IVPB 11/17/24 23:35 11/17/24 08:52 DC Docusate Sodium (COLace 100MG CAP) 100 mg BID PRN PO CONSTIPATION 11/17/24 00:00 12/17/24 00:00 Enoxaparin Sodium (Lovenox) 30 mg BID SQ 11/18/24 21:00 11/18/24 17:56 DC Enoxaparin Sodium (Lovenox) 40 mg DAILY SQ 11/17/24 09:00 12/17/24 08:59 11/19/24 08:11 40 MG Insulin Human Regular (humuLIN R 100 UNIT/ML 3ML) INSULIN SLIDING SCAL... ACHS SQ 11/17/24 07:30 12/17/24 07:29 11/18/24 21:02 4 UNIT Labetalol HCl (TRANdate 20MG SYG) 10 mg Q2H PRN IV SBP GREATER THAN 160 11/17/24 00:00 12/17/24 00:00 Lactated Ringer's 1,000 ml @ 75 mls/hr [id number] IV 11/17/24 03:00 12/17/24 02:59 11/19/24 05:24 75 MLS/HR Lactulose (Constulose 20gm/ 30ml Udcup) 20 gm Q6H PRN PO CONSTIPATION 11/17/24 00:00 12/17/24 00:00 Lisinopril (Prinivil 20mg) 20 mg DAILY PO 11/17/24 09:00 11/17/24 10:18 DC Magnesium Sulfate 50 ml @ 0 mls/hr PROTOCOL PRN IV As needed 11/17/24 08:00 12/17/24 07:59 11/19/24 06:14 25 MLS/HR Meclizine HCl (ANTIvert 25 mg) 25 mg QID PRN PO DIZZINESS 11/17/24 08:30 12/17/24 08:29 Ondansetron HCl (zoFRAN 4MG INJ) 4 mg Q6H PRN IVP NAUSEA/VOMITING 11/17/24 00:00 12/17/24 00:00 Sodium Chloride 500 ml @ 0 mls/hr Q0M STAT IV 11/18/24 14:13 11/18/24 14:18 DC 11/18/24 14:47 300 MLS/HR Temazepam (restORIL 15 MG CAP) 15 mg HS PRN PO INSOMNIA/SLEEP 11/17/24 00:00 12/17/24 00:00 DIAGNOSTICS / RADIOLOGY: [ ] ASSESSMENT: Orthostatic hypotension Dehydration, POA Acute Diarrhea since 2 weeks resolved Acute complicated cystitis, POA Left knee pain s/p fall injury - ruled out fracture with knee x-ray Closed head injury s/p fall on 11/16/2024 - ruled out red flags with CT Acute kidney injury, GFR 44 General body weakness Diabetes mellitus with hyperglycemia, on Mounjaro Hypertension History of prior dizziness and placed on meclizine on 07/15/2024 PLAN: 1. Orthostatic hypotension * Continue fluids and telemetry. * Repeat orthostatic vital signs in am s/p hydration showed orthostatic hypotension. * Consult PT for [id number] evaluation. * Continue home medication [id number] mg PO TID PRN dizziness * Educate patient on rising slowly from sitting or lying positions and avoid sudden posture changes * Consider compression stockings or pharmacological treatment if it does not resolve. 2. Sepsis with Urinary tract infection * Initial presentation HR 111,WBC 12.4 with positive urine leukocyte esterase * Monitor lactic acid levels. !.4 today * Order CBC * Continue Rocephin 2 g ( day 3) 3. Diabetes mellitus with hyperglycemia * Glucometer checks before meals and at bedtime with regular insulin sliding scale as needed 4.Hypertension * Blood pressure is 143/76 mm Hg. * Continue home hypertension medications * Educate patient on lifestyle modifications * Monitor BMP 5. Acute kidney injury * Urine protein of 100, urine glucose of 50, GFR 44 on initial urine analysis(11/16/24) * GFR improved to 92 after hydration * Continue IV fluids. DVT prophylaxis and GI prophylaxis PRN PHYSICIAN RESIDENT STATEMENT I was present with the resident during the History and Physical exam and I have reviewed the resident's note. This case was discussed with the resident and I agree with the history, physical exam and medical decision making as documented. Additions/exceptions/observations were directly added to the notes. Abimael Thibodeaux IV, MD, SYED M MD Nov 19, 2024 14:38 RD RIOS MD Nov 19, 2024 20:47
--- NOTE | 2024-11-19 20:40 | NUR ---
MEDS SHIFT ASSESSMENT DONE, PLEASE REFER TO CHART. PT COMPLAINTS OF BACK PAINS AND REQUESTED FOR MEDS FOR PAIN NAD FOR SLEEP. TYLENOL GIVEN FOR PAIN AND RESTORIL GIVEN FOR SLEEP. DUE MEDS GIVEN WELL, TOLERATED WELL. KEPT RESTED AND COMFORTABLE IN BED. CALL LIGHT WITHIN REACH. WILL RE-ASSESS PT. FAMILY AT BEDSIDE.
[2024-11-20] VITALS (11 sets, daily range): BP systolic 135–160; BP diastolic 72–83; PULSE 76–100; RESP 18–20; TEMP 97.8–98.4; O2SAT 94
--- NOTE | 2024-11-20 05:15 | NUR ---
ROUNDS PT SLEPT AT INTERVALS DURING THE SHIFT. NO DISTRESS NOTED. KEPT RESTED AND COMFORTABLE. FOR MORE CARE.
[2024-11-20 06:19] LABS: IMMATURE GRANULOCYTE ABSOLUTE 0.02 K/uL (0-1); NUCLEATED RED BLOOD CELLS 0.0 % (0.0-0.19); PLATELET COUNT (AUTO) 243 K/uL (130-400); RED BLOOD CELL COUNT(AUTO) 3.62 MIL/uL (4.00-5.50); RED CELL DISTRIBUTION WIDTH 11.8 % (11.0-15.5); WHITE BLOOD COUNT (AUTO) 5.5 K/uL (4.8-10.8)
[2024-11-20 06:38] LABS: CREATININE 0.6 mg/dL (0.5-1.0); GLOMERULAR FILTR. RATE CALC 96.0 mL/min (>90); GLUCOSE,RANDOM 121.0 mg/dL (70-105); SODIUM SERUM 141.0 mmol/L (136-145); UREA NITROGEN, BLOOD 13.0 mg/dL (7-18)
[2024-11-20] MEDS: LISINOPRIL 20 MG TABLET PO SCH (10:01)
[2024-11-20] MEDS ORDERED: AMOX-426 PO (14:46)
--- NOTE | 2024-11-20 15:36 | DS ---
Discharge Summary Hospital Course Summary: Ms. Soto is a 69-year-old female with history of diabetes type 2 on Mounjaro, hypertension and history of dizziness presented to the emergency department for evaluation of weakness since 2 weeks, dizziness since 1 day, diarrhea since 2 weeks. She became dizzy and felt like loss of balance and hit her frontal head on a block and scraped her right knee. She denied actual syncope or loss of consciousness. She reported orthostatic symptoms sometimes. CT of the head without contrast: Age-related degenerative change. Changes of chronic microvascular ischemic disease. No evidence of calvarial fracture or extra-axial collection. No acute intracranial abnormality is present.. Patient presented with a WBCs of 12.4, positive for UTI. In ED the patient received Rocephin 1 g , NS 1 L bolus, and Tylenol 1 g. ED provided ordered orthostatic vital signs at 21:10, but were done at 3:00 a.m., Results: Supine 127/67, heart rate 84bpm. Sitting 136/59, heart rate 85bpm, standing 116/65, heart rate 81bpm. She tested positive for group a strep. During hospitalization she received Rocephin2 g IV, labetalol 10 mg and lisinopril 20 mg for her hypertension and insulin for her diabetes. She tested positive for orthostatic hypotension. She was hydrated with lactated ringer 75 mL/hour throughout the stay to improve her orthostatic hypotension. Today she tested negative with Blood pressure 151/78 laying down ,153/83 sitting, standing 160/83. Today she is discharged with Augmentin 500-125 PO BD for 10 days and was instructed to continue her home medications. She is advised to rise slowly from lying or sitting and pausing before standing fully. She is instructed to meet her primary care physician in 1 week. Return to ED or call 911 for severe dizziness, chest pain, shortness of breath, syncope, or new neuro symptoms. Procedure(s): IMAGING REPORT Signed PATIENT: ELIAZAR SOTO MR#: [id number] : 1955 SEX: F AGE: 69 LOCATION: [facility] ORDER STATUS: ADM IN REPORT#: [id number] SERVICE REASON: Syncopal episode ORDERING PHYSICIAN: SOURAV BLANCO MD PROCEDURE: CAROTID - US CAROTID DUPLEX EXAMINATION: DUPLEX ULTRASOUND EXAMINATION OF THE BILATERAL CAROTID AND VERTEBRAL ARTERIES. CLINICAL HISTORY: Syncope. COMPARISON: CT head without contrast dated 11/16/2024. TECHNIQUE: Real-time ultrasound scan of the bilateral carotid and vertebral arteries, 2-D grayscale, with color Doppler flow and spectral waveform analysis. FINDINGS: Color and spectral Doppler interrogation of the carotid vessels on the right demonstrate peak systolic velocities as follows: CCA (Proximal and distal): 77 and 74 cm/s respectively. Bulb: 69 cm/s. ECA: 95 cm/s. ICA (Proximal, mid, and distal): 72, 108, and 120 cm/s respectively. Vertebral artery demonstrates antegrade flow: 54 cm/s. Right ICA/CCA ratio: 1.6 Peak systolic velocities on the left are as follows: CCA (Proximal and distal): 130 and 110 cm/s respectively. Bulb: 92 cm/s. ECA: 106 cm/s. ICA (Proximal, mid, and distal): 134, 118, and 139 cm/s respectively. Vertebral artery demonstrates antegrade flow: 70 cm/s. Left ICA/CCA ratio: 1.3 Both the common carotid arteries and their branches reveal mild intimal thickening. There are small calcified plaques in the bilateral carotid bulb without significant stenosis. IMPRESSION: Mild intimal thickening in the bilateral carotid arteries and their branches. Small calcified plaques in the bilateral carotid bulb without significant stenosis. There is no significant flow limiting lesions in the remainder of the arteries. /[place] DICTATED BY: RAULITO SIERRA MD DATE: 11/18/24919 ELECTRONICALLY SIGNED BY: RAULITO SIERRA MD DATE: 11/18/24919 [place] [address] [address] IMAGING REPORT Signed PATIENT: ELIAZAR SOTO MR#: [id number] : 1955 SEX: F AGE: 69 LOCATION: [facility] ORDER 2349 STATUS: ADM IN REPORT#: [id number] SERVICE 0714 REASON: Syncope ORDERING PHYSICIAN: RASHID INMAN PROCEDURE: ECHO CMP - ECHO 2-D COMPLETE APPROVED REPORT EXAM: Two-dimensional and M-mode echocardiogram with Doppler and color Doppler. INDICATION ICD: Syncope R55 2D Dimensions RVDd 3.3 cm LVEF(%) 61.7 (>50%) LVED Vol(simp.) 53.0 mL IVSd 1.0 (0.7-1.1cm) FS(%) 33 % LVES Vol(simp.) 19.0 mL LVDd 3.7 (3.8-5.6cm) LA (2D) 3.3 (1.6-4.0cm) LVEF(%, simp.) 65 % PWd 1.0 (0.7-1.1cm) Ao Root(2D) 2.7 (2.0-3.7cm) LA ESV INDEX (BP) 21.21 mL/m2 IVSs 1.5 cm LVOT diam 1.7 (1.8-2.4cm) LVDs 2.5 (2.5-4.0cm) IVC diam 1.6 cm PWs 1.2 cm Deformation Strain Apical 4 -17.6 % Apical 2 -19.5 % Apical 3 -22.7 % Global Strain -20.0 % M-Mode Dimensions EPSS 0.5 cm LA (MM) 3.9 (1.6-4.0cm) Ao Root(MM) 2.6 (2.0-3.7cm) Aortic Valve AoV Vmax 1.6 m/s Ao Peak GR 10.1 mmHg LVOT Vmax 1.0 m/s AoV VTI 0.3 m Ao Mean GR 6.4 mmHg LVOT VTI 0.24 m SUSAN (VMAX) 1.45 cm2 SUSAN (VTI) 1.6 cm2 Mitral Valve MV E Vmax 92.8 cm/s DECEL Time 172 ms MV A Vmax 125.5 cm/s P 1/2 T 53 ms E/A ratio 0.7 MVA (PHT) 4.2 cm2 TDI E/E' Medial 20.2 E/E' Lateral 10.8 Medial E' Peak V 4.60 cm/s Lateral E' Peak V 8.63 cm/s Pulmonary Valve PV Vmax 1.0 m/s PV VTI 0.22 m PV Mean GR 2.5 mmHg PV Peak GR 3.9 mmHg Left Ventricle The left ventricle is normal size. GLS -20.0% There is normal left ventricular wall thickness. LVEF is 60-65%. 3D volume EF 64%. Indeterminate diastolic function. Right Ventricle The right ventricle is normal size. The right ventricular systolic function is normal. Atria The left atrium size is normal. The right atrium size is normal. Aortic Valve The aortic valve is normal in structure. No aortic regurgitation is present. There is no aortic valvular stenosis. Mitral Valve Mitral valve leaflets open well. There is trace mitral valve regurgitation noted. There is no mitral valve stenosis. Tricuspid Valve The tricuspid valve is normal in structure. There is no tricuspid valve regurgitation noted. Pulmonic Valve The pulmonary valve is normal in structure. There is no pulmonic valvular regurgitation. Great Vessels The aortic root is normal in size. The IVC is normal in size and collapses >50% with inspiration. Pericardium There is no pericardial effusion. Other Information Quality : Adequate Rhythm : NSR Conclusion LVEF is 60-65%. 3D volume EF 64%. Indeterminate diastolic function. DICTATED BY: MARI MAS DO DATE: 11/17/24802 ELECTRONICALLY SIGNED BY: MARI MAS DO DATE: 11/17/24 [address] [place] [address] IMAGING REPORT Signed PATIENT: ELIAZAR SOTO MR#: [id number] : 1955 SEX: F AGE: 69 LOCATION: [facility] ORDER 10 STATUS: [facility] REPORT#: [id number] SERVICE 09 REASON: cp ORDERING PHYSICIAN: FRANCO CISNEROS PROCEDURE: KNEE 3V RT - KNEE 3VWS RT EXAM: CR Right Knee, 3 views. CLINICAL HISTORY: Pain. COMPARISON: None provided. FINDINGS: No acute fracture or aggressive appearing osseous lesion. 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 Mild spiking of the medial tibial tubercle. Unremarkable lateral femorotibial and patellofemoral compartments. There is no joint effusion appreciated. The soft tissues are unremarkable. IMPRESSION: No acute bony abnormality is evident. 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 /[place] DICTATED BY: MERCEDEZ ESPARZA Jr., MD DATE: 11/17/242317 ELECTRONICALLY SIGNED BY: MERCEDEZ ESPARZA Jr., MD DATE: 11/17/24 0001 [facility] [address] [place], [place] [id number] IMAGING REPORT Signed PATIENT: ELIAZAR SOOT MR#: [id number] : 1955 SEX: F AGE: 69 LOCATION: [facility] ORDER 10 STATUS: REG REPORT#: [id number] SERVICE 09 REASON: dizzy, fall ORDERING PHYSICIAN: FRANCO CISNEROS PROCEDURE: HEAD WO - CT HEAD/BRAIN W/O CONTRAST EXAM: Non-contrast CT examination of the Brain. CLINICAL HISTORY: Dizzy. History of fall. TECHNIQUE: Thin collimated axial CT images of the brain were obtained, with sagittal and coronal reformatted images also submitted. A CT scan is done according to ALARA (As Low as Reasonably Achievable). CONTRAST USED: None. COMPARISON: None provided. FINDINGS: Mild age-related degenerative change with prominent sulci and basilar cisterns. Subtle hypoattenuation in the deep periventricular white matter and the greenberg radiata sequela of chronic microvascular ischemic disease. No acute intracranial abnormality is present. No acute cortical infarction, hemorrhage, mass, or mass effect. No hydrocephalus or abnormal extra-axial fluid collections. The posterior fossa is unremarkable. The skull base and calvarium are intact. The included portions of the paranasal sinuses and mastoid air cells are clear. IMPRESSION: Age-related degenerative change. Changes of chronic microvascular ischemic disease. No evidence of calvarial fracture or extra-axial collection. No acute intracranial abnormality is present. /[place] DICTATED BY: MERCEDEZ ESPARZA Jr., MD DATE: 11/16/242317 ELECTRONICALLY SIGNED BY: MERCEDEZ ESPARZA Jr., MD DATE: 11/16/242317 [place] [address] [place] [address] IMAGING REPORT Signed PATIENT: ELIAZAR SOTO MR#: [id number] : 1955 SEX: F AGE: 69 LOCATION: [facility] ORDER 10 STATUS: [facility] REPORT#: [id number] SERVICE 09 REASON: cp ORDERING PHYSICIAN: FRANCO CISNEROS PROCEDURE: CXR1VW - CHEST 1VW EXAM: CR Chest, 1 view CLINICAL HISTORY: Chest pain. COMPARISON: None provided. FINDINGS: The lungs show no infiltrates or other acute findings. No pleural effusion or pneumothorax. The cardiomediastinal silhouette is within normal limits. No acute osseous abnormality. IMPRESSION: No acute cardiopulmonary process is evident. [facility] DICTATED BY: MERCEDEZ ESPARZA Jr., MD DATE: 11/17/241 ELECTRONICALLY SIGNED BY: MERCEDEZ ESPARZA Jr., MD DATE: 11/17/24 0002 Assessment/Plan: ASSESSMENT: Orthostatic hypotension due to Dehydration Acute Diarrhea since 2 weeks resolved Acute complicated cystitis, POA Left knee pain s/p fall injury - ruled out fracture with knee x-ray Closed head injury s/p fall on 11/16/2024 - ruled out red flags with CT Acute kidney injury, GFR 44 POA General body weakness Diabetes mellitus with hyperglycemia, on Mounjaro Hypertension History of prior dizziness and placed on meclizine on 07/15/2024 PLAN: Admission Date: 11/17/24 Discharge Date: 11/20/24 Disposition: Home Condition at Discharge: Stable Activity: As tolerated Home Medications: Continued Discharge Medications: Augmentin 100-125 PO BD Lisinopril 20mg OD Metformin 1000 mg BID Follow-Up Appointments: Primary Care Provider: within 1 week of discharge Discharge Instructions: Maintain hydration at least2 L per day Avoid alcohol Raised slowly from lying or sitting; pause before standing fully Avoid prolonged standing or heavy exertion in heat Return to ER for severe dizziness, fainting, chest pain, shortness of breath, or neurological symptoms Continue home medications Amoxicillin 500-125 twice a day for 10 days Follow up with primary care physician in 1 week Home Medications: Active Scripts Amoxicillin/Potassium Clav (Augmentin 500-125 Tablet) 500 Mg-125 Mg Tablet, 1 TAB PO BID for 10 Days, #20 TAB 0 Refills Prov:SOURAV BLANCO MD 11/20/24 Reported Medications Lisinopril (Lisinopril) 20 Mg Tablet, 1 TAB PO DAILY for 30 Days, #30 TAB 0 Refills 11/17/24 Metformin HCl (Metformin HCl) 1,000 Mg Tablet, 1 TAB PO BID for 30 Days, #60 TAB 0 Refills 11/17/24 Time spent arranging discharge: 1-30 minutes ATTESTATION BY PHYSICIAN I have seen and examined the patient. I reviewed the documentation, medical decision making, and treatment plan as noted by the resident provider above. I agree with the findings and plan of care. Abimael Thibodeaux MD, BHAVANI MD Nov 20, 2024 15:36
--- NOTE | 2024-11-20 16:05 | NUR ---
DISCHARGE DC'D IV. NO COMPLICATIONS. FAMILY AT BEDSIDE. DENIES DIZZINESS AT THIS TIME. AWARE TO FOLLOW UP WITH DR. SAAVEDRA WITHIN 1 WEEK. PHONE NUMBER PROVIDED. AWARE OF NEW PRESCRIPTION SENT TO PHARMACY. ANSWERED QUESTIONS AT THIS TIME. NO FURTHER CONCERNS.
[2024-11-21] MEDS ORDERED: LISINOPRIL 20 MG TABLET PO SCH (09:00)
== END 2024-11-20 16:15 | disposition home or self-care (01) ==
LOC: EDH 20:49 → INTOOBSV 23:23 → UNDOADMOB 23:23 → EDHIP 23:23 → 3DH 11-17 21:55 → EDHIP 11-17 21:55 → 3DH 11-18 16:00 → EDHIP 11-18 16:00
PROVIDERS: ADMIT Internal Medicine; ATTEND Internal Medicine
DX: I95.1 Orthostatic hypotension (principal); R07.89 Other chest pain; M25.562 Pain in left knee; R19.7 Diarrhea, unspecified; E78.1 Pure hyperglyceridemia; S80.211A Abrasion, right knee, initial encounter; R55 Syncope and collapse; R53.1 Weakness; K59.00 Constipation, unspecified; I10 Essential (primary) hypertension; E11.65 Type 2 diabetes mellitus with hyperglycemia; N30.00 Acute cystitis without hematuria; N17.9 Acute kidney failure, unspecified; Z20.822 Contact with and (suspected) exposure to COVID-19; Z90.710 Acquired absence of both cervix and uterus; Z79.899 Other long term (current) drug therapy; W18.39XA Other fall on same level, initial encounter; Y93.89 Activity, other specified; Y92.89 Other specified places as the place of occurrence of the external cause; Y99.8 Other external cause status
CPT/HCPCS: 96372 ×4; 96365; 83605 ×5; 99284; 82550; 83735 ×5; 84484 ×3; 80048 ×4; 85025 ×2; 87086; 81001; 36415 ×5; 71045; 73562; 70450; 83036; 84443; 84100; 80053; 83880; 85027 ×3; 87040 ×2; 87880; 87804 ×2; 82948 ×15; 87635; 93306; 93356; 93880; 76376; 93005; 84145; 96366 ×3; 96367; 80061; 97161; 97116; 97530; J1815; G0378 ×48; A4510; J0696 ×4; J1650 ×4; J3475 ×2; J7120; 99285